=== PATIENT | female | born 1980 | race Caucasian/White ===

== ENCOUNTER 2016-12-30 20:17 | Inpatient (IN) | payer MEDICAID ==
[2016-12-30] MEDS ORDERED: HYDROmorphone 1 MG/ML Syringe IVPUSH ONE ×2 (21:20→22:02)
[2016-12-30] MEDS ORDERED: Ondansetron 4 MG/2 ML SDV IVPUSH ONE (21:20)
--- NOTE | 2016-12-30 21:27 | EDM.PDOC ---
ED HPI GENERAL MEDICAL PROBLEM - General Chief Complaint: Abdominal Pain Stated Complaint: ABDOMINAL PAIN Time Seen by Provider: 12/30/16 21:10 Source of Information: Reports: Patient, Old Records, RN History Limitations: Reports: No Limitations - History of Present Illness INITIAL COMMENTS - FREE TEXT/NARRATIVE: 36 yo female with a pHx of gastric bypass by Dr. Sagastume and recurrent bowel obstructions requiring surgery presents with onset of steady pain and mild nausea about 1700h today. Stool today harder than normal. No fever. No vomiting. Pain is constant at 7/10. Onset: Today Onset Date: 12/30/16 Onset Time: 17:00 Duration: Hour(s): Location: Reports: Abdomen Quality: Reports: Pressure Severity: Moderate Improves with: Reports: None Worsens with: Reports: Other (time) Context: Reports: Other (Hx of recurrent obstructions.) Associated Symptoms: Reports: Loss of Appetite, Nausea/Vomiting (no vomiting). 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 (see below) (none) Right Middle Abdomen Pain Score (Numeric/FACES): 9 - Related Data Allergies Allergy/AdvReac Type Severity Reaction Status Date / Time morphine Allergy Unknown Itching Verified 01/20/16 12:16 Penicillins Allergy Unknown Hives Verified 01/20/16 12:16 fentanyl Allergy Itching Verified 01/20/16 12:16 Home Meds: Home Meds DULoxetine [Cymbalta] 60 mg PO BEDTIME 08/24/14 [History] Docusate Sodium/Sennosides [Senna Plus] 2 tab PO DAILY #100 tablet 09/10/14 [Rx] Polyethylene Glycol 3350 [Miralax] 34 gm PO BID 12/19/14 [History] Cholecalciferol (Vitamin D3) [Vitamin D3] 1,000 unit PO DAILY 02/26/15 [History] Lubiprostone [Amitiza] 8 mcg PO BID 02/26/15 [History] Lurasidone [Latuda] 60 mg PO DAILY 02/26/15 [History] Mirtazapine 7.5 mg PO BEDTIME 02/26/15 [History] hydrOXYzine Pamoate [Hydroxyzine Pamoate] 50 mg PO Q4H PRN 02/26/15 [History] Cyclobenzaprine [Flexeril] 10 mg PO Q6H PRN #36 tablet 05/09/15 [Rx] Cyclobenzaprine [Flexeril] 10 mg PO TID PRN #36 tablet 05/09/15 [Rx] Cyanocobalamin (Vitamin B-12) [Vitamin B-12] 1,000 mcg SL DAILY 05/13/15 [ History] Multivitamin [Multi-Vitamin Daily] 1 tab PO BID 05/13/15 [History] Cholecalciferol (Vitamin D3) [Vitamin D3] 5,000 unit PO BID 12/30/16 [History] Dexmethylphenidate HCl [Focalin] 10 mg PO TID 12/30/16 [History] Milk Thistle 175 mg PO BID 12/30/16 [History] Past Medical History HEENT History: Reports: Impaired Vision Respiratory History: Reports: Pneumothorax Gastrointestinal History: Reports: Bowel Obstruction, Chronic Constipation, Chronic Diarrhea, Other (See Below) Other Gastrointestinal History: episosdes weekly since 12/25 Genitourinary History: Reports: UTI, Recurrent 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: Reports: Endometriosis, Musculoskeletal History: Reports: Fracture Psychiatric History: Reports: ADHD, Addiction, Anxiety, Bipolar, Depression, Panic Attack, Psych Hospitalization(s), PTSD, Suicide Attempt Hematologic History: Reports: Anemia, B12 Deficiency - Infectious Disease History Infectious Disease History: Reports: Chicken Pox - Past Surgical History HEENT Surgical History: Reports: Oral Surgery, Tonsillectomy GI Surgical History: Reports: Appendectomy, Bariatric Procedure, Cholecystectomy , Colonoscopy, EGD, Hernia, Abdominal, Hernia Repair/Other Female Surgical History: Reports: Section, Hysterectomy Musculoskeletal Surgical History: Reports: Other (See Below) Social & Family History - Family History Family Medical History: Unobtainable - Tobacco Use Smoking Status *Q: Current Every Day Smoker Years of Tobacco use: 20 Packs/Tins Daily: 1 Used Tobacco, but Quit: No Month Tobacco Last Used: april Second Hand Smoke Exposure: Yes - Caffeine Use Caffeine Use: Reports: Coffee - Alcohol Use Days Per Week of Alcohol Use: 0 - Recreational Drug Use Recreational Drug Use: No Drug Use in Last 12 Months: No Recreational Drug Type: Reports: Methamphetamine Recreational Drug Use Frequency: Not Used In Over 1 Year ED ROS GENERAL - Review of Systems Review Of Systems: See Below Constitutional: Reports: Decreased Appetite. Denies: Fever, Chills HEENT: Reports: No Symptoms Respiratory: Reports: No Symptoms Cardiovascular: Reports: No Symptoms Endocrine: Reports: No Symptoms GI/Abdominal: Reports: Abdominal Pain, Nausea. Denies: Constipation, Diarrhea, Decreased Appetite, Distension, Hematemesis, Hematochezia, Melena, Vomiting : Reports: No Symptoms Musculoskeletal: Reports: No Symptoms Skin: Reports: No Symptoms Neurological: Reports: No Symptoms ED EXAM, GI/ABD - Physical Exam Exam: See Below Exam Limited By: No Limitations General Appearance: Alert, WD/WN, No Apparent Distress Eyes: Bilateral: Normal Appearance, EOMI Ears: Normal External Exam, Normal Canal, Hearing Grossly Normal Nose: Normal Inspection, Normal Mucosa, No Blood Throat/Mouth: Normal Inspection, Normal Lips, Normal Teeth, Normal Gums, Normal Oropharynx, Normal Voice, No Airway Compromise Head: Atraumatic, Normocephalic Neck: Normal Inspection Respiratory/Chest: No Respiratory Distress, Lungs Clear, Normal Breath Sounds, No Accessory Muscle Use Cardiovascular: Regular Rate, Rhythm, No Edema GI/Abdominal Exam: Soft, No Distention, Tender (to the R of the umbilicus, vertical surgical scar(old) present), Abnormal Bowel Sounds (slightly decreased. ) Back Exam: Normal Inspection, Full Range of Motion. No: CVA Tenderness (L), Muscle Spasm Extremities: Normal Inspection, Normal Range of Motion, Non-Tender Neurological: Alert, Oriented, CN II-XII Intact, Normal Cognition, No Motor/ Sensory Deficits Psychiatric: Normal Affect, Normal Mood Skin Exam: Warm, Dry, Intact, Normal Color, No Rash Lymphatic: No Adenopathy Course - Vital Signs Text/Narrative:: Discussed with Dr. Sagastume @ [id number] Last Recorded V/S: Last Vital Signs Temp 36.2 C 12/30/16 20:59 Pulse 85 12/30/16 20:59 Resp 18 12/30/16 20:59 BP 128/72 12/30/16 22:22 Pulse Ox 98 12/30/16 20:59 - Orders/Labs/Meds Orders: Active Orders 24 hr Category Date Time Status Abdomen Pelvis w Cont [CT] Stat Exams 12/30/16 21:19 Taken UA W/MICROSCOPIC [URIN] Stat Lab 12/30/16 21:19 Uncollected Iopamidol [Isovue-300 (61%)] Med 12/30/16 21:45 Active 112 ml IV . DIRECTED Lactated Ringers [Ringers, Lactated] 1,000 ml Med 12/30/16 21:30 Active IV ASDIRECTED Sodium Chloride 0.9% [Saline Flush] Med 12/30/16 21:33 Active 10 ml FLUSH ONETIME PRN Medication Orders Lactated Ringer's (Ringers, Lactated) 1,000 mls @ 150 mls/hr IV ASDIRECTED EDELMIRA Last Admin: 12/30/16 21:32 Dose: 150 mls/hr Iopamidol (Isovue-300 (61%)) 112 ml IV . DIRECTED EDELMIRA Last Admin: 12/30/16 22:10 Dose: 150 ml Sodium Chloride (Saline Flush) 10 ml FLUSH ONETIME PRN PRN Reason: PER RADIOLOGY PROTOCOL Last Admin: 12/30/16 22:10 Dose: 10 ml Admin: 12/30/16 21:36 Dose: 10 ml Labs: Laboratory Tests 12/30/16 12/30/16 Range/Units 21:31 21:31 WBC 11.4 H (4.5-11.0) K/uL RBC 4.32 (3.30-5.50) M/uL Hgb 10.3 L (12.0-15.0) g/dL Hct 31.9 L (36.0-48.0) % MCV 74 L (80-98) fL MCH 24 L (27-31) pg MCHC 32 (32-36) % Plt Count 294 (150-400) K/uL Sodium 139 L (140-148) mmol/L Potassium 3.8 (3.6-5.2) mmol/L Chloride 105 (100-108) mmol/L Carbon Dioxide 25 (21-32) mmol/L Anion Gap 12.8 (5.0-14.0) mmol/L BUN 16 D (7-18) mg/dL Creatinine 0.8 (0.6-1.0) mg/dL Est Cr Clr Drug Dosing 94.54 mL/min Estimated GFR (MDRD) > 60 (>60) Glucose 88 (74-106) mg/dL Calcium 8.3 L (8.5-10.1) mg/dL Lipase 288 (73-393) U/L Meds: Medications Generic Name Dose Route Start Last Admin Trade Name Freq PRN Reason Stop Dose Admin Lactated Ringer's 1,000 mls @ 150 mls/hr 12/30/16 21:30 12/30/16 21:32 Ringers, Lactated IV 150 mls/hr ASDIRECTED EDELMIRA Administration Iopamidol 112 ml 12/30/16 21:45 12/30/16 22:10 Isovue-300 (61%) IV 150 ml . DIRECTED EDELMIRA Administration Sodium Chloride 10 ml 12/30/16 21:33 12/30/16 22:10 Saline Flush FLUSH 10 ml ONETIME PRN Administration PER RADIOLOGY PROTOCOL Discontinued Medications Generic Name Dose Route Start Last Admin Trade Name Freq PRN Reason Stop Dose Admin Diphenhydramine HCl 50 mg 12/30/16 22:01 12/30/16 22:16 Benadryl IVPUSH 12/30/16 22:02 50 mg ONETIME ONE Administration Hydromorphone HCl 1 mg 12/30/16 21:20 12/30/16 21:32 Dilaudid IVPUSH 12/30/16 21:21 1 mg ONETIME ONE Administration Hydromorphone HCl 1 mg 12/30/16 22:02 12/30/16 22:17 Dilaudid IVPUSH 12/30/16 22:03 1 mg ONETIME ONE Administration Sodium Chloride 74 mls @ 3 mls/sec 12/30/16 21:33 12/30/16 22:10 Normal Saline IV 12/30/16 21:34 3 mls/sec ONETIME ONE Administration Ondansetron HCl 4 mg 12/30/16 21:20 12/30/16 21:35 Zofran IVPUSH 12/30/16 21:21 4 mg ONETIME ONE Administration - Radiology Interpretation Free Text/Narrative:: CT abd/pelvis-SBO or sever ileus, other incidental findings CT Results Date: 12/30/16 CT Results Time: 22:40 Departure - Departure Time of Disposition: 22:50 Disposition: Admitted As Inpatient 66 Condition: Fair Clinical Impression: Small bowel obstruction - Discharge Information Referrals: Hill Sagastume MD [Primary Care Provider] - Forms: ED Department Discharge - My Orders Last 24 Hours: My Active Orders 12/30/16 21:19 Abdomen Pelvis w Cont [CT] Stat UA W/MICROSCOPIC [URIN] Stat 12/30/16 21:30 Lactated Ringers [Ringers, Lactated] 1,000 ml IV ASDIRECTED 12/30/16 21:33 Sodium Chloride 0.9% [Saline Flush] 10 ml FLUSH ONETIME PRN 12/30/16 21:45 Iopamidol [Isovue-300 (61%)] 112 ml IV . DIRECTED - Assessment/Plan Last 24 Hours: My Active Orders 12/30/16 21:19 Abdomen Pelvis w Cont [CT] Stat UA W/MICROSCOPIC [URIN] Stat 12/30/16 21:30 Lactated Ringers [Ringers, Lactated] 1,000 ml IV ASDIRECTED 12/30/16 21:33 Sodium Chloride 0.9% [Saline Flush] 10 ml FLUSH ONETIME PRN 12/30/16 21:45 Iopamidol [Isovue-300 (61%)] 112 ml IV . DIRECTED
[2016-12-30] MEDS ORDERED: Lactated Ringers 1,000 ML IV SCH (21:30)
[2016-12-30] MEDS: Sodium Chloride 0.9% 10 ML Syringe FLUSH PRN ×2 (21:36→22:10)
[2016-12-30] MEDS ORDERED: Iopamidol 612 MG/ML 150 ML Bottle IV SCH (21:45)
[2016-12-30] MEDS ORDERED: diphenhydrAMINE 50 MG/ML SDV IVPUSH ONE (22:01)
[2016-12-30] MEDS ORDERED: Pantoprazole 40 MG Vial IVPUSH ONE (22:54)
[2016-12-30] MEDS ORDERED: Meperidine 300 MG/30 ML PCA Vial IV PRN (23:17)
[2016-12-30] MEDS ORDERED: Ondansetron 4 MG/2 ML SDV IVPUSH PRN (23:30)
[2016-12-30] MEDS: Dextrose 5%-Lactated Ringers 1,000 ML IV SCH (23:55)
[2016-12-31] MEDS: Nicotine 21 MG/24 Hr Patch TRDERM SCH ×2 (00:44→09:27)
[2016-12-31] MEDS: diphenhydrAMINE 50 MG/ML SDV IVPUSH PRN ×3 (00:45→14:55)
[2016-12-31] MEDS: Mirtazapine 15 MG Tab PO SCH ×2 (00:46→22:01)
[2016-12-31] MEDS: Dextrose 5%-Lactated Ringers 1,000 ML IV SCH ×4 (05:25→20:25)
[2016-12-31] MEDS ORDERED: Bisacodyl 10 MG Supp RECTAL PRN (06:38)
[2016-12-31] MEDS ORDERED: Naloxone 0.4 MG/ML SDV IV PRN (08:17)
[2016-12-31] MEDS ORDERED: Acetaminophen 1,000 MG in Premix Bag 1 BAG IV ONE (08:45)
[2016-12-31] MEDS ORDERED: Bisacodyl 10 MG Supp RECTAL SCH (09:00)
--- NOTE | 2016-12-31 09:28 | CR ---
Abdomen 2V AP Upright Decub HISTORY: SBO FINDINGS: There is mild gaseous distention of a couple of small bowel loops left midabdomen. There is also mild gaseous distention of the ascending and transverse colon. No free air is identified. No so ft tissue mass or organomegaly can be seen. Multiple surgical clips and staple lines are noted. Lung bases are clear. Thoracolumbar spine demonstrates mild scoliosis convex to the right. There is contra st in the urinary bladder from CT study of one day prior. IMPRESSION: Bowel gas pattern could suggest mild ileus, gastroenteritis, or partial small bowel obstr uction. I see no signs of perforation. Extensive old postoperative changes are noted. Mild thoracolum bar scoliosis convex to the right.
--- NOTE | 2016-12-31 13:52 | PCM.SURGPN ---
- General Info Date of Service: 12/31/16 POD#: 0 Admission Diagnosis/Problem: Abdominal pain (Partial SBO) Functional Status: Reports: Ambulating, Urinating, Other (Complains of a headache today ) - Review of Systems General: Reports: No Symptoms HEENT: Reports: Headaches Pulmonary: Reports: No Symptoms Cardiovascular: Reports: No Symptoms Gastrointestinal: Reports: Abdominal Pain, Constipation, Decreased Appetite, Nausea Genitourinary: Reports: No Symptoms Musculoskeletal: Reports: No Symptoms Skin: Reports: No Symptoms Neurological: Reports: No Symptoms Psychiatric: Reports: No Symptoms Systems Review Comment:: Jamee reports that she continues to have right upper and lower quadrant pain. She also complains of a headache which has not been controlled with IV Tylenol. - Patient Data Vitals - Most Recent: Last Vital Signs Temp 35.9 C 12/31/16 08:00 Pulse 90 12/31/16 08:00 Resp 16 12/31/16 08:00 BP 92/65 12/31/16 08:00 Pulse Ox 94 L 12/31/16 08:00 Weight - Most Recent: 77.111 kg I&O - Last 24 Hours: Intake & Output 12/30/16 12/31/16 12/31/16 22:59 06:59 14:59 Intake Total 1004 Output Total 500 Balance 504 Med Orders - Current: Current Medications Bisacodyl (Dulcolax) 10 mg RECTAL DAILY PRN PRN Reason: Constipation Diphenhydramine HCl (Benadryl) 25 - 50 mg IVPUSH Q4H PRN PRN Reason: Itching Last Admin: 12/31/16 04:39 Dose: 25 mg Dextrose/Lactated Ringer's (Dextrose 5%-Lactated Ringers) 1,000 mls @ 125 mls/ hr IV ASDIRECTED EDELMIRA Last Admin: 12/31/16 12:39 Dose: 125 mls/hr Meperidine HCl (Demerol Adjunct Physics Instructor 300 Mg In 30 Ml) 300 mg IV ASDIRECTED PRN; Protocol PRN Reason: Pain Last Admin: 12/30/16 23:48 Dose: 300 mg Mirtazapine (Remeron) 7.5 mg PO BEDTIME EDELMIRA Last Admin: 12/31/16 00:46 Dose: 7.5 mg Naloxone HCl (Narcan) 0.1 mg IV ASDIRECTED PRN PRN Reason: DECREASED RESPIRATORY RATE Nicotine (Habitrol) 21 mg TRDERM DAILY [facility] Last Admin: 12/31/16 09:27 Dose: 21 mg Ondansetron HCl (Zofran) 4 mg IVPUSH Q4H PRN PRN Reason: Nausea/Vomiting Pantoprazole Sodium (Protonix Iv) 40 mg IVPUSH Q24H [facility] Sodium Chloride (Saline Flush) 10 ml FLUSH ONETIME PRN PRN Reason: PER RADIOLOGY PROTOCOL Last Admin: 12/30/16 22:10 Dose: 10 ml Discontinued Medications Bisacodyl (Dulcolax) 10 mg RECTAL DAILY EDELMIRA Stop: 12/31/16 09:01 Last Admin: 12/31/16 08:26 Dose: 10 mg Diphenhydramine HCl (Benadryl) 50 mg IVPUSH ONETIME ONE Stop: 12/30/16 22:02 Last Admin: 12/30/16 22:16 Dose: 50 mg Hydromorphone HCl (Dilaudid) 1 mg IVPUSH ONETIME ONE Stop: 12/30/16 21:21 Last Admin: 12/30/16 21:32 Dose: 1 mg Hydromorphone HCl (Dilaudid) 1 mg IVPUSH ONETIME ONE Stop: 12/30/16 22:03 Last Admin: 12/30/16 22:17 Dose: 1 mg Lactated Ringer's (Ringers, Lactated) 1,000 mls @ 150 mls/hr IV ASDIRECTED [facility] Last Admin: 12/30/16 21:32 Dose: 150 mls/hr Sodium Chloride (Normal Saline) 74 mls @ 3 mls/sec IV ONETIME ONE Stop: 12/30/16 21:34 Last Admin: 12/30/16 22:10 Dose: 3 mls/sec Dextrose/Lactated Ringer's (Dextrose 5%-Lactated Ringers) 1,000 mls @ 175 mls/ hr IV ASDIRECTED [facility] Last Admin: 12/31/16 05:25 Dose: 175 mls/hr Acetaminophen 1,000 mg/ Premix 100 mls @ 400 mls/hr IV NOW ONE Stop: 12/31/16 08:59 Last Admin: 12/31/16 08:25 Dose: 400 mls/hr Iopamidol (Isovue-300 (61%)) 112 ml IV . DIRECTED [facility] Last Admin: 12/30/16 22:10 Dose: 150 ml Ondansetron HCl (Zofran) 4 mg IVPUSH ONETIME ONE Stop: 12/30/16 21:21 Last Admin: 12/30/16 21:35 Dose: 4 mg Pantoprazole Sodium (Protonix Iv) 40 mg IVPUSH ONETIME ONE Stop: 12/30/16 22:55 Last Admin: 12/30/16 23:51 Dose: 40 mg - Exam Wound/Incisions: Other (NA) Quality Assessment: DVT Prophylaxis General: Alert, Oriented, No Acute Distress HEENT: Pupils Equal Neck: Supple Lungs: Normal Respiratory Effort Cardiovascular: Regular Rhythm GI/Abdominal Exam: Tender (generalized ) Extremities: Normal Inspection Skin: Warm, Dry, Intact Neurological: No New Focal Deficit Psy/Mental Status: Alert, Normal Affect - Problem List & Annotations (1) Small bowel obstruction SNOMED Code(s): 237534420 Code(s): K56.69 - OTHER INTESTINAL OBSTRUCTION Status: Acute Current Visit: Yes - Problem List Review Problem List Initiated/Reviewed/Updated: Yes - My Orders Last 24 Hours: Active Orders 24 hr Category Date Time Status Ambulate [RC] Q4HPRN Care 12/31/16 06:36 Active Intake and Output [RC] ASDIRECTED Care 12/30/16 23:30 Active Overnight Pulse Oximetry [RC] Click to Edit Care 12/31/16 01:18 Active Up ad Nalini [RC] ASDIRECTED Care 12/30/16 23:28 Active Up to Chair [RC] Q4HPRN Care 12/31/16 06:36 Active Vital Signs [RC] Q4H Care 12/30/16 23:29 Active Nothing Per Oral Diet [DIET] Diet 12/31/16 Breakfast Active Abdomen 2V AP Upright Decub [CR] Routine Exams 01/01/17 04:00 Ordered CBC W/O DIFF,HEMOGRAM [HEME] Timed Lab 01/01/17 04:00 Ordered COMPREHENSIVE METABOLIC PN,CMP [CHEM] Timed Lab 01/01/17 04:00 Ordered FERRITIN [CHEM] Routine Lab 01/01/17 04:00 Ordered FOLATE [FOLIC ACID] [CHEM] Routine Lab 01/01/17 04:00 Ordered MAGNESIUM [CHEM] Timed Lab 01/01/17 04:00 Ordered PHOSPHORUS [CHEM] Timed Lab 01/01/17 04:00 Ordered VITAMIN B12 [CHEM] Routine Lab 01/01/17 04:00 Ordered Bisacodyl [Dulcolax] Med 12/31/16 06:38 Active 10 mg RECTAL DAILY PRN Dextrose 5%-Lactated Ringers 1,000 ml Med 12/31/16 06:45 Active IV ASDIRECTED Meperidine [Demerol AD TAKER 300 MG in 30 ML] Med 12/30/16 23:17 Active 300 mg IV ASDIRECTED PRN Mirtazapine [Remeron] Med 12/31/16 00:30 Active 7.5 mg PO BEDTIME Naloxone [Narcan] Med 12/31/16 08:17 Active 0.1 mg IV ASDIRECTED PRN Nicotine [Habitrol] Med 12/31/16 00:30 Active 21 mg TRDERM DAILY Ondansetron [Zofran] Med 12/30/16 23:30 Active 4 mg IVPUSH Q4H PRN Pantoprazole [ProTONIX IV] Med 12/31/16 22:00 Active 40 mg IVPUSH Q24H diphenhydrAMINE [Benadryl] Med 12/31/16 00:20 Active 25 - 50 mg IVPUSH Q4H PRN Pulse Oximetry Continuous Monitoring [OM.PC] Routine Oth 12/31/16 01:18 Ordered Sequential Compression Device [OM.PC] Routine Oth 12/31/16 06:27 Ordered Code Status [Resuscitation Status] Routine Resus Stat 12/30/16 23:27 Ordered Medication Orders Bisacodyl (Dulcolax) 10 mg RECTAL DAILY PRN PRN Reason: Constipation Diphenhydramine HCl (Benadryl) 25 - 50 mg IVPUSH Q4H PRN PRN Reason: Itching Last Admin: 12/31/16 04:39 Dose: 25 mg Admin: 12/31/16 00:45 Dose: 25 mg Dextrose/Lactated Ringer's (Dextrose 5%-Lactated Ringers) 1,000 mls @ 125 mls/ hr IV ASDIRECTED EDELMIRA Last Admin: 12/31/16 12:39 Dose: 125 mls/hr Infusion: 12/31/16 12:39 Dose: 125 mls/hr Admin: 12/31/16 07:20 Dose: 125 mls/hr Meperidine HCl (Demerol Adjunct Physics Instructor 300 Mg In 30 Ml) 300 mg IV ASDIRECTED PRN; Protocol PRN Reason: Pain Last Admin: 12/30/16 23:48 Dose: 300 mg Mirtazapine (Remeron) 7.5 mg PO BEDTIME EDELMIRA Last Admin: 12/31/16 00:46 Dose: 7.5 mg Naloxone HCl (Narcan) 0.1 mg IV ASDIRECTED PRN PRN Reason: DECREASED RESPIRATORY RATE Nicotine (Habitrol) 21 mg TRDERM DAILY [facility] Last Admin: 12/31/16 09:27 Dose: 21 mg Admin: 12/31/16 00:44 Dose: 21 mg Ondansetron HCl (Zofran) 4 mg IVPUSH Q4H PRN PRN Reason: Nausea/Vomiting Pantoprazole Sodium (Protonix Iv) 40 mg IVPUSH Q24H [facility] Sodium Chloride (Saline Flush) 10 ml FLUSH ONETIME PRN PRN Reason: PER RADIOLOGY PROTOCOL Last Admin: 12/30/16 22:10 Dose: 10 ml Admin: 12/30/16 21:36 Dose: 10 ml - Assessment Assessment (Free Text/Narrative):: Partial SBO s/p gastric bypass surgery. - Plan Plan (Free Text/Narrative):: 1. Abdominal x-rays, flat and upright this am. Repeat tomorrow am for follow up SBO. 2. CBC, CMP, Mg, Phos, Ferritin, B12, Folate levels in am. 3. Decrease IV to 125 mL/hr. 4. SCDs on while in bed. 5. Up in chair and ambulate QID and prn. 6. Dulcolax suppository once this am and repeat prn.
[2016-12-31] MEDS: Acetaminophen 325 MG Tab PO PRN ×2 (14:28→20:24)
[2016-12-31] MEDS ORDERED: Pantoprazole 40 MG Vial IVPUSH SCH (22:00)
[2017-01-01] MEDS ORDERED: Iron Sucrose Complex 500 MG in Sodium Chloride 0.9% 250 ML IV ONE (08:30)
[2017-01-01] MEDS ORDERED: Cyanocobalamin (Vitamin B12) 1,000 MCG/ML SDV IM ONE (09:00)
[2017-01-01] MEDS: Nicotine 21 MG/24 Hr Patch TRDERM SCH (09:16)
--- NOTE | 2017-01-01 09:23 | CR ---
Abdomen 2V AP Upright Decub HISTORY: follow up SBO FINDINGS: There is gaseous distention of bowel loops in the upper abdomen. Loops appear to represent primarily colon. One slightly prominent small bowel loop left midabdomen is unchanged. Little small b owel gas is seen. Surgical clips and staple lines are redemonstrated throughout the abdomen. No mass organomegaly is identified. There is no free air. IMPRESSION: No significant change compared with yesterday's exam.
--- NOTE | 2017-01-01 10:47 | DISCH ---
ADMISSION DIAGNOSES: Abdominal pain, ADD, recurrent major depression, history of Silvestre-en-Y gastric bypass surgery, unspecified surgical malabsorption, B12 deficiency, vitamin D deficiency, hypothyroidism, megacolon, gastric motility disorder, and circadian dysregulation. DISCHARGE DIAGNOSES: Partial small bowel obstruction, resolved; megacolon; and gastric motility disorder. HISTORY: Jamee Vance was admitted on 12/30/2016 for onset of abdominal pain and nausea. She had a complete abdominal workup and was hospitalized and treated conservatively. She was n.p.o., given a Dilaudid CONSERVATION AGENT and Zofran for nausea and vomiting. Her abdominal x-rays did reveal improvement. She continued on a clear liquid diet. Her activity was good. She did have a suppository on 12/31/2016, which resulted in a large bowel movement. On 01/01/2017, her activity is good. Pain is 0. Vital signs are stable, and she is ready to be discharged to home. Ferritin on admission was 12, and she will be receiving Venofer 500 mg IV this morning before she goes home. REVIEW OF SYSTEMS: HEENT: Negative. NECK: Negative. HEART: No chest pain, shortness of breath, or fast or irregular heart beat. LUNGS: No cough. ABDOMEN: As above. : Negative. EXTREMITIES: Has chronic joint pain and stiffness. PSYCHIATRIC: Depression is well controlled with medication. SKIN: Without rash. NEURO: No headaches, dizziness, or loss of coordination. Remainder of review of systems negative for any pertinent positives and negatives. OBJECTIVE: GENERAL: Jamee Vance is a pleasant 36-year-old female. VITAL SIGNS: Height is 5 feet 6.9 inches, weight is 170 pounds. TPR is 97.4, 66, 18. Blood pressure 101/55. HEENT: Negative. NECK: Supple. HEART: Regular rate and rhythm. LUNGS: Clear. ABDOMEN: Soft, very minimally tender in all 4 quadrants. EXTREMITIES: Negative. NEURO: Intact. SKIN: Without rash. PSYCHIATRIC: Mood and affect appropriate. DISPOSITION: Discharged to home. CONDITION: Stable and improving. FOLLOWUP APPOINTMENT: With Britney Hand PA-C, on 03/10/2017 at 1:00 p.m. She will need to have her labs redrawn, along with an iron panel. HOME MEDICATIONS: Remain the same: Vitamin D3 5,000 international units twice daily; vitamin B12 1,000 mcg sublingual daily; Flexeril 10 mg every 6 hours p.r.n. muscle spasms; Cymbalta 60 mg at bedtime; Focalin 10 mg 3 times a day; Senna Plus 2 tablets oral daily; Amitiza 24 mcg oral twice daily, #60 with 11 refills; Latuda 60 mg oral daily; Milk Thistle 175 mg oral twice daily; mirtazapine 7.5 mg oral at bedtime; multivitamin 1 tablet twice a day; MiraLax 34 g oral twice a day; and hydroxyzine pamoate 50 mg oral every 4 hours p.r.n. anxiety. DISCHARGE INSTRUCTIONS: Diet after discharge: Usual diet as tolerated. Drink 8 to 10 glasses per day. Activity: As tolerated. Driving after discharge: May drive. Shower/bathing: May shower. Notify provider if any increased pain, nausea, or vomiting.
--- NOTE | 2017-01-01 10:51 | US ---
Pelvis Non OB Comp HISTORY: oval fluid density lesion Left ovary FINDINGS: The uterus and right ovary are surgically absent. There is a large cystic lesion on the lef t ovary measuring 7.7 x 6.6 x 6.2 cm in size. I cannot identify normal ovarian tissue. The mass is an echoic with through transmission. No definite septations or soft tissue component can be seen. Anteri or wall calcifications are seen on CT study of 12/30/2016. There is no free fluid in the cul-de-sac. IMPRESSION: 1. Status post hysterectomy and right oophorectomy. 2. Large cystic mass left ovary as described above. While this could be a large simple cyst, I cannot exclude other etiology such as ovarian cystoadenoma or cystadenocarcinoma.
[2017-01-01 11:58] VITALS: BP 103/58
--- NOTE | 2017-01-04 09:12 | PN ---
DATE OF SERVICE: 01/01/2017 Jamee was admitted overnight with small-bowel obstruction picture. Her abdomen this morning is somewhat distended but not particularly tender. Review of the CT scan shows quite a bit in the way of large dilated small bowel loops. Transition point to my mind is somewhat unclear. We did obtain an abdominal x-ray. It does show some air in the rectum. Plan at this point will be to treat the patient conservatively for the time being. If we can avoid re-operating on this patient, that would be certainly beneficial. Otherwise maximize activity, work on pulmonary toilet, and recheck some labs tomorrow. Hill Sagastume MD /[id number]
== END 2017-01-01 14:24 | disposition home or self-care (01) | DRG 389 ==
LOC: JP.ED 20:17 → JP.ICU 22:57 → JP.2SS 12-31 18:50
PROVIDERS: ADMIT Surgery; ATTEND Surgery
DX: K56.69 Other intestinal obstruction (principal); K91.2 Postsurgical malabsorption, not elsewhere classified; K59.39 Other megacolon; F17.210 Nicotine dependence, cigarettes, uncomplicated; Z98.84 Bariatric surgery status; Z98.0 Intestinal bypass and anastomosis status; K31.89 Other diseases of stomach and duodenum; E03.9 Hypothyroidism, unspecified; F31.9 Bipolar disorder, unspecified; F90.9 Attention-deficit hyperactivity disorder, unspecified type; F41.9 Anxiety disorder, unspecified; G47.20 Circadian rhythm sleep disorder, unspecified type; Z91.5 Personal history of self-harm; E55.9 Vitamin D deficiency, unspecified; E53.8 Deficiency of other specified B group vitamins; Z87.440 Personal history of urinary (tract) infections; K59.09 Other constipation; H54.7 Unspecified visual loss; Z88.5 Allergy status to narcotic agent; Z88.0 Allergy status to penicillin; Z88.8 Allergy status to other drugs, medicaments and biological substances
CPT/HCPCS: 36415; 74022; 74022-26; 74177; 76856; 76856-26; 80048; 80053; 81001; 82306; 82607; 82652; 82728; 82746; 83690; 83735; 84100; 84425; 84443; 85027; 86304; 94762; 96361; 96374; 96375; 96376; 99285-25; A9270-GY; C9113; J0131; J1170; J1200; J1756; J2175; J2405; J3420; J7030; J7042; J7050; J7120

== ENCOUNTER 2019-06-12 12:27 | Inpatient (IN) | payer MEDICAID ==
[2019-06-12] MEDS ORDERED: Ondansetron 4 MG/2 ML SDV IVPUSH ONE (14:08)
--- NOTE | 2019-06-12 14:08 | EDM.PDOC ---
ED HPI GENERAL MEDICAL PROBLEM - General Chief Complaint: Abdominal Pain Stated Complaint: ABDOMINAL PAIN Time Seen by Provider: 06/12/19 13:50 Source of Information: Reports: Patient History Limitations: Reports: No Limitations - History of Present Illness INITIAL COMMENTS - FREE TEXT/NARRATIVE: pt arrived with pain in the lower abdoman. She has not been having bm. She Had a very small stool this am. She passed some gas last nite but not today. Onset: Other ( started 2 -3 days ago. ) Duration: Hour(s): Location: Reports: Abdomen Quality: Reports: Sharp, Stabbing Associated Symptoms: Reports: Other (pt is not stooling. ) Abdominal Pain Score (Numeric/FACES): 8 - Related Data Allergies Allergy/AdvReac Type Severity Reaction Status Date / Time morphine Allergy Unknown Itching Verified 06/12/19 13:24 Penicillins Allergy Unknown Hives Verified 06/12/19 13:24 fentanyl Allergy Itching Verified 06/12/19 13:24 hydromorphone [From Dilaudid] Allergy Itching Verified 06/12/19 13:24 Home Meds: Home Meds DULoxetine [Cymbalta] 120 mg PO BEDTIME 08/24/14 [History] Docusate Sodium/Sennosides [Senna Plus] 2 tab PO DAILY #100 tablet 09/10/14 [Rx] Polyethylene Glycol 3350 [Miralax] 34 gm PO BID PRN 12/19/14 [History] Cholecalciferol (Vitamin D3) [Vitamin D3] 1,600 unit PO DAILY 02/26/15 [History] Mirtazapine 15 mg PO BEDTIME 02/26/15 [History] Cyclobenzaprine [Flexeril] 10 mg PO TID PRN #36 tablet 05/09/15 [Rx] Milk Thistle 175 mg PO BID 12/30/16 [History] Lubiprostone [Amitiza] 24 mcg PO BID #60 cap 01/01/17 [Rx] Ascorbic Acid [Vitamin C] 250 mg PO DAILY 06/12/19 [History] Cyanocobalamin (Vitamin B-12) [Cyanocobalamin Injection] 1,000 mcg IM Q30D 06/11 [History] Dextroamphetamine/Amphetamine [Adderall 20 mg Tablet] 20 mg PO BEDTIME 06/12/19 [History] Dextroamphetamine/Amphetamine [Adderall] 30 mg PO BID 06/12/19 [History] Minocycline [Minocin] 50 mg PO BID 06/12/19 [History] Pantoprazole [ProTONIX] 40 mg PO DAILY 06/12/19 [History] cloNIDine HCL [Clonidine HCl] 0.1 mg PO BID 06/12/19 [History] Past Medical History HEENT History: Reports: Impaired Vision Respiratory History: Reports: Pneumothorax Gastrointestinal History: Reports: Bowel Obstruction, Chronic Constipation, Chronic Diarrhea, Other (See Below) Other Gastrointestinal History: episosdes weekly since 12/25. 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: Endometriosis, Musculoskeletal History: Reports: Fracture Psychiatric History: Reports: ADHD, Addiction, Anxiety, Bipolar, Depression, Panic Attack, Psych Hospitalization(s), PTSD, Suicide Attempt Hematologic History: Reports: Anemia, B12 Deficiency - Infectious Disease History Infectious Disease History: Reports: Chicken Pox - Past Surgical History HEENT Surgical History: Reports: Oral Surgery, Tonsillectomy GI Surgical History: Reports: Appendectomy, Bariatric Procedure, Cholecystectomy , Colonoscopy, EGD, Hernia, Abdominal, Hernia Repair/Other Female Surgical History: Reports: Section, Hysterectomy Musculoskeletal Surgical History: Reports: Other (See Below) Social & Family History - Family History Family Medical History: Unobtainable - Tobacco Use Smoking Status *Q: Current Every Day Smoker Years of Tobacco use: 20 Packs/Tins Daily: 1 - Caffeine Use Caffeine Use: Reports: Coffee - Alcohol Use Days Per Week of Alcohol Use: 2 Number of Drinks Per Day: 2 Total Drinks Per Week: 4 - Recreational Drug Use Recreational Drug Use: Yes Drug Use in Last 12 Months: Yes Recreational Drug Type: Reports: Marijuana/Hashish ED ROS GENERAL - Review of Systems Review Of Systems: See Below Constitutional: Reports: Decreased Appetite HEENT: Reports: No Symptoms Respiratory: Reports: No Symptoms Cardiovascular: Reports: No Symptoms Endocrine: Reports: No Symptoms GI/Abdominal: Reports: Abdominal Pain : Reports: No Symptoms Musculoskeletal: Reports: No Symptoms Skin: Reports: No Symptoms Neurological: Reports: No Symptoms Psychiatric: Reports: Anxiety ED EXAM, GI/ABD - Physical Exam Exam: See Below Text/Narrative:: pt arrived with pain in the rt side of her abdoman and accross her lower abdoman. She has not been stooling normal. She has been nauseated but has not vomited. She has a definite motility problem with her bowel. Exam Limited By: No Limitations General Appearance: Alert, Moderate Distress Ears: Normal TMs Nose: Normal Inspection Throat/Mouth: Normal Inspection Head: Atraumatic Neck: Normal Inspection Respiratory/Chest: No Respiratory Distress Cardiovascular: Regular Rate, Rhythm GI/Abdominal Exam: No Distention, Other (pt is tender in the rt mid abdoman and pain in the lower abdoman. ) (Female) Exam: Deferred Rectal (Female) Exam: Deferred Back Exam: Normal Inspection Extremities: Normal Inspection Neurological: Alert, Oriented, Normal Cognition Course - Vital Signs Last Recorded V/S: Last Vital Signs Temp 36.2 C 06/12/19 13:20 Pulse 72 06/12/19 17:08 Resp 20 06/12/19 14:48 BP 118/52 L 06/12/19 17:08 Pulse Ox 100 06/12/19 14:48 - Orders/Labs/Meds Orders: Active Orders 24 hr Category Date Time Status UA W/MICROSCOPIC [URIN] Urgent Lab 06/12/19 14:08 Ordered Iopamidol [Isovue-300 (61%)] Med 06/12/19 15:18 Active 100 ml IV . DIRECTED PRN Sodium Chloride 0.9% [Normal Saline] 1,000 ml Med 06/12/19 14:15 Active IV ASDIRECTED Sodium Chloride 0.9% [Normal Saline] 1,000 ml Med 06/12/19 17:15 Ordered IV ASDIRECTED Sodium Chloride 0.9% [Normal Saline] 76 ml Med 06/12/19 15:30 Active IV ASDIRECTED Medication Orders Sodium Chloride (Normal Saline) 1,000 mls @ 999 mls/hr IV ASDIRECTED EDELMIRA Last Admin: 06/12/19 14:35 Dose: 999 mls/hr Sodium Chloride (Normal Saline) 76 mls @ 3.2 mls/sec IV ASDIRECTED EDELMIRA Stop: 06/13/19 15:31 Last Admin: 06/12/19 15:30 Dose: 3.2 mls/sec Sodium Chloride (Normal Saline) 1,000 mls @ 999 mls/hr IV ASDIRECTED EDELMIRA Iopamidol (Isovue-300 (61%)) 100 ml IV . DIRECTED PRN PRN Reason: RADIOLOGY EXAM Stop: 06/13/19 15:19 Last Admin: 06/12/19 15:30 Dose: 100 ml Labs: Laboratory Tests 06/12/19 06/12/19 06/12/19 Range/Units 14:21 14:21 15:36 WBC 10.0 (4.5-11.0) K/uL RBC 4.27 (3.30-5.50) M/uL Hgb 12.3 D (12.0-15.0) g/dL Hct 37.2 (36.0-48.0) % MCV 87 (80-98) fL MCH 29 (27-31) pg MCHC 33 (32-36) % Plt Count 315 (150-400) K/uL Neut % (Auto) 66 (36-66) % Lymph % (Auto) 26 (24-44) % [place] % (Auto) 6 (2-6) % Eos % (Auto) 1 L (2-4) % Baso % (Auto) 0 (0-1) % Sodium 138 L (140-148) mmol/L Potassium 4.5 (3.6-5.2) mmol/L Chloride 104 (100-108) mmol/L Carbon Dioxide 24 (21-32) mmol/L Anion Gap 14.5 H (5.0-14.0) mmol/L BUN 9 (7-18) mg/dL Creatinine 0.7 (0.6-1.0) mg/dL Est Cr Clr Drug Dosing 102.01 mL/min Estimated GFR (MDRD) > 60 (>60) Glucose 87 (74-106) mg/dL Lactic Acid 1.4 (0.4-2.0) mmol/L Calcium 8.7 (8.5-10.1) mg/dL Total Bilirubin 0.4 D (0.2-1.0) mg/dL AST 19 (15-37) U/L ALT 25 (12-78) U/L Alkaline Phosphatase 63 (46-116) U/L Total Protein 6.9 (6.4-8.2) g/dL Albumin 3.9 (3.4-5.0) g/dL Globulin 3.0 (2.3-3.5) g/dL Albumin/Globulin Ratio 1.3 (1.2-2.2) Meds: Medications Generic Name Dose Route Start Last Admin Trade Name Freq PRN Reason Stop Dose Admin Sodium Chloride 1,000 mls @ 999 mls/hr 06/12/19 14:15 06/12/19 14:35 Normal Saline IV 999 mls/hr ASDIRECTED EDELMIRA Administration Sodium Chloride 76 mls @ 3.2 mls/sec 06/12/19 15:30 06/12/19 15:30 Normal Saline IV 06/13/19 15:31 3.2 mls/sec ASDIRECTED EDELMIRA Administration Sodium Chloride 1,000 mls @ 999 mls/hr 06/12/19 17:15 Normal Saline IV ASDIRECTED EDELMIRA Iopamidol 100 ml 06/12/19 15:18 06/12/19 15:30 Isovue-300 (61%) IV 06/13/19 15:19 100 ml . DIRECTED PRN Administration RADIOLOGY EXAM Discontinued Medications Generic Name Dose Route Start Last Admin Trade Name Tavia PRN Reason Stop Dose Admin Hydromorphone HCl 0.5 mg 06/12/19 14:09 06/12/19 14:44 Dilaudid IVPUSH 06/12/19 14:10 0.5 mg ONETIME ONE Administration Hydromorphone HCl 0.5 mg 06/12/19 15:41 06/12/19 15:56 Dilaudid IVPUSH 06/12/19 15:42 0.5 mg ONETIME ONE Administration Ondansetron HCl 4 mg 06/12/19 14:08 06/12/19 14:43 Zofran IVPUSH 06/12/19 14:09 4 mg ONETIME ONE Administration Sodium Chloride 10 ml 06/12/19 15:30 06/12/19 15:30 Saline Flush FLUSH 06/12/19 15:31 10 ml ONETIME EDELMIRA Administration - Re-Assessments/Exams Free Text/Narrative Re-Assessment/Exam: 06/12/19 17:15 pt had normal labs. A urine has not been obtained. Her cat scan of the abdoman does not show a definite obstruction. She has some fluid and gas filled small bowel segments. This is always difficult to sort out her problems. Dr Sagastume felt it best to admit her with the amount of pain she is having. Departure - Departure Time of Disposition: 17:18 Disposition: Admitted As Inpatient 66 Condition: Fair Clinical Impression: Status post gastric bypass for obesity, Dehydration, Abdominal pain, At risk for abnormal gastrointestinal motility - Discharge Information Referrals: Vesta Arroyo MD [Primary Care Provider] - Forms: ED Department Discharge Care Plan Goals: admit to Dr Shabazz. Sepsis Event Note - Evaluation Sepsis Screening Result: No Definite Risk - Focused Exam Vital Signs: Vital Signs Temp Pulse Resp BP Pulse Ox 06/12/19 17:08 72 118/52 L 06/12/19 15:50 72 113/50 L 06/12/19 14:48 77 20 116/62 100 06/12/19 13:20 36.2 C 81 14 110/58 L 100 Date Exam was Performed: 06/12/19 Time Exam was Performed: 17:13 - My Orders Last 24 Hours: My Active Orders 06/12/19 14:08 UA W/MICROSCOPIC [URIN] Urgent 06/12/19 14:15 Sodium Chloride 0.9% [Normal Saline] 1,000 ml IV ASDIRECTED 06/12/19 15:18 Iopamidol [Isovue-300 (61%)] 100 ml IV . DIRECTED PRN 06/12/19 15:30 Sodium Chloride 0.9% [Normal Saline] 76 ml IV ASDIRECTED 06/12/19 17:15 Sodium Chloride 0.9% [Normal Saline] 1,000 ml IV ASDIRECTED - Assessment/Plan Last 24 Hours: My Active Orders 06/12/19 14:08 UA W/MICROSCOPIC [URIN] Urgent 06/12/19 14:15 Sodium Chloride 0.9% [Normal Saline] 1,000 ml IV ASDIRECTED 06/12/19 15:18 Iopamidol [Isovue-300 (61%)] 100 ml IV . DIRECTED PRN 06/12/19 15:30 Sodium Chloride 0.9% [Normal Saline] 76 ml IV ASDIRECTED 06/12/19 17:15 Sodium Chloride 0.9% [Normal Saline] 1,000 ml IV ASDIRECTED
[2019-06-12] MEDS ORDERED: HYDROmorphone 0.5 MG/0.5 ML Syringe IVPUSH ONE ×3 (14:09→17:35)
[2019-06-12] MEDS ORDERED: Sodium Chloride 0.9% 1,000 ML IV SCH ×2 (14:15→17:15)
[2019-06-12] MEDS ORDERED: Iopamidol 612 MG/ML 100 ML Bottle IV PRN (15:18)
[2019-06-12] MEDS ORDERED: Sodium Chloride 0.9% 10 ML Syringe FLUSH SCH (15:30)
--- NOTE | 2019-06-12 16:31 | CRLCT ---
INDICATION: Lower abdominal pain TECHNIQUE: CT abdomen and pelvis acquired with IV contrast. 100 mL of Isovue-300 administered. COMPARISON: 12/30/2016 FINDINGS: Lower chest: Unremarkable. Liver: A 1.8 x 1.2 cm ovoid low-density area in the inferior aspect of the medial segment of the left hepatic lobe on image 40, increased in prominence, which could represent focal fatty infiltration. A subcentimeter low-density lesion again seen along the medial aspect of the right hepatic lobe on image 51, too small to characterize. Spleen: Unremarkable. Pancreas: Unremarkable. Gallbladder and bile ducts: Cholecystectomy. Persistent mild biliary dilatation. Adrenal glands: Unremarkable. Kidneys: A ptotic right kidney. No hydronephrosis. GI tract: Post gastric bypass and partial colectomy changes again seen. Several gas and fluid filled small bowel segments in the left abdomen and pelvis are nonspecific. Mild rectal wall prominence is at least partially related to underdistention. Vascular structures: Unremarkable. Lymph nodes: No abnormally enlarged lymph nodes. Miscellaneous: Small pelvic free fluid. No free air. Pelvic Organs: Hysterectomy. A peripherally enhancing left adnexal low-density structure compatible with an involuting physiologic follicle. An adjacent 2.6 x 2.3 cm left adnexal low-density area containing several irregular calcifications. No discrete bladder abnormality seen. Bones: A mild scoliotic deformity. IMPRESSION: Some fluid and gas-filled small bowel segments, nonspecific. Correlate for enteritis. Mild rectal wall prominence is at least partially related to underdistention, however correlate clinically to exclude mild proctitis. Small pelvic free fluid which may be physiologic. A 2.6 cm left adnexal low-density structure containing several calcifications. Follow-up with sonographic evaluation. A 1.8 cm hepatic low-density focus could represent focal fatty infiltration. Follow-up with nonemergent sonographic evaluation. Dictated by Brad Baca MD @ 06/12/2019 4:29:44 PM Please note that all CT scans at this facility use dose modulation, iterative reconstruction, and/or weight-based dosing when appropriate to reduce radiation dose to as low as reasonably achievable. Dictated by: Brad Baca MD @ 06/12/2019 16:30:24 (Electronically Signed)
--- NOTE | 2019-06-12 17:25 | PCM.HP.2 ---
H&P History of Present Illness - General Date of Service: 06/12/19 Admit Problem/Dx: Admission Diagnosis/Problem Admission Diagnosis/Problem Enteritis Source of Information: Patient, Provider, RN Notes Reviewed History Limitations: Reports: No Limitations - History of Present Illness Initial Comments - Free Text/Narative: Ms. Vance is a 38-year-old woman who was admitted through the emergency department at the request of Dr. Sagastume for further evaluation and management of abdominal pain and nausea. She is status post previous gastric bypass surgery. Over the last 6 years has had episodes of bowel obstruction and required surgical intervention. Over the last years had ongoing difficulty with abdominal pain and nausea. Symptoms have been worse now over the past 8 days with increased pain and nausea, minimal oral intake. On evaluation in the emergency department labs are unremarkable and CT scan shows no evidence of obstruction. There were some nonspecific small bowel loops with fluid and air, possibly consistent with enteritis. Abdominal Pain Score (Numeric/FACES): 8 - Related Data Allergies/Adverse Reactions: Allergies Allergy/AdvReac Type Severity Reaction Status Date / Time morphine Allergy Unknown Itching Verified 06/12/19 13:24 Penicillins Allergy Unknown Hives Verified 06/12/19 13:24 fentanyl Allergy Itching Verified 06/12/19 13:24 hydromorphone [From Dilaudid] Allergy Itching Verified 06/12/19 13:24 Home Medications: Home Meds DULoxetine [Cymbalta] 120 mg PO BEDTIME 08/24/14 [History] Docusate Sodium/Sennosides [Senna Plus] 2 tab PO DAILY #100 tablet 09/10/14 [Rx] Polyethylene Glycol 3350 [Miralax] 34 gm PO BID PRN 12/19/14 [History] Cholecalciferol (Vitamin D3) [Vitamin D3] 1,600 unit PO DAILY 02/26/15 [History] Mirtazapine 15 mg PO BEDTIME 02/26/15 [History] Cyclobenzaprine [Flexeril] 10 mg PO TID PRN #36 tablet 05/09/15 [Rx] Milk Thistle 175 mg PO BID 12/30/16 [History] Lubiprostone [Amitiza] 24 mcg PO BID #60 cap 01/01/17 [Rx] Ascorbic Acid [Vitamin C] 250 mg PO DAILY 06/12/19 [History] Cyanocobalamin (Vitamin B-12) [Cyanocobalamin Injection] 1,000 mcg IM Q30D 06/11 [History] Dextroamphetamine/Amphetamine [Adderall 20 mg Tablet] 20 mg PO BEDTIME 06/12/19 [History] Dextroamphetamine/Amphetamine [Adderall] 30 mg PO BID 06/12/19 [History] Minocycline [Minocin] 50 mg PO BID 06/12/19 [History] Pantoprazole [ProTONIX] 40 mg PO DAILY 06/12/19 [History] cloNIDine HCL [Clonidine HCl] 0.1 mg PO BID 06/12/19 [History] Past Medical History HEENT History: Reports: Impaired Vision Respiratory History: Reports: Pneumothorax Gastrointestinal History: Reports: Bowel Obstruction, Chronic Constipation, Chronic Diarrhea, Other (See Below) Other Gastrointestinal History: episosdes weekly since 12/25. 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, Musculoskeletal History: Reports: Fracture Psychiatric History: Reports: ADHD, Addiction, Anxiety, Bipolar, Depression, Panic Attack, Psych Hospitalization(s), PTSD, Suicide Attempt Hematologic History: Reports: Anemia, B12 Deficiency - Infectious Disease History Infectious Disease History: Reports: Chicken Pox - Past Surgical History HEENT Surgical History: Reports: Oral Surgery, Tonsillectomy GI Surgical History: Reports: Appendectomy, Bariatric Procedure, Cholecystectomy , Colonoscopy, EGD, Hernia, Abdominal, Hernia Repair/Other Female Surgical History: Reports: Section, Hysterectomy Musculoskeletal Surgical History: Reports: Other (See Below) Social & Family History - Family History Family Medical History: Unobtainable - Tobacco Use Smoking Status *Q: Current Every Day Smoker Years of Tobacco use: 20 Packs/Tins Daily: 1 - Caffeine Use Caffeine Use: Reports: Coffee - Alcohol Use Days Per Week of Alcohol Use: 2 Number of Drinks Per Day: 2 Total Drinks Per Week: 4 - Recreational Drug Use Recreational Drug Use: Yes Drug Use in Last 12 Months: Yes Recreational Drug Type: Reports: Marijuana/Hashish H&P Review of Systems - Review of Systems: Review Of Systems: See Below General: Reports: Weakness, Decreased Appetite. Denies: Fever, Chills, Malaise HEENT: Reports: No Symptoms Pulmonary: Reports: No Symptoms Cardiovascular: Reports: No Symptoms Gastrointestinal: Reports: Abdominal Pain, Decreased Appetite, Nausea. Denies: Diarrhea, Difficulty Swallowing, Hematemesis, Hematochezia, Melena, Vomiting Genitourinary: Reports: No Symptoms Musculoskeletal: Reports: Back Pain Skin: Reports: No Symptoms Psychiatric: Reports: No Symptoms Neurological: Reports: No Symptoms Hematologic/Lymphatic: Reports: No Symptoms Immunologic: Reports: No Symptoms Exam - Exam Exam: See Below - Vital Signs Vital Signs: Last Vital Signs Temp 97.2 F 06/12/19 13:20 Pulse 72 06/12/19 17:08 Resp 20 06/12/19 14:48 BP 118/52 L 06/12/19 17:08 Pulse Ox 100 06/12/19 14:48 Weight: 154 lb 8.705 oz - Exam General: Alert, Oriented, Cooperative, Mild Distress HEENT: Conjunctiva Clear, Hearing Intact, Mucosa Moist & [place], Normal Nasal Septum, Posterior Pharynx Clear, Pupils Equal Neck: Supple, Trachea Midline Lungs: Clear to Auscultation, Normal Respiratory Effort Cardiovascular: Regular Rate, Regular Rhythm, Normal S1, Normal S2. No: Systolic Murmur, Diastolic Murmur GI/Abdominal Exam: Soft, No Organomegaly, Tender. No: Distended, Guarding, Rigid, Rebound Back Exam: Normal Inspection, Full Range of Motion Extremities: Non-Tender, No Pedal Edema Skin: Warm, Dry, Intact Neurological: Cranial Nerves Intact, Strength Equal Bilateral, Normal Speech, Normal Tone, Sensation Intact. No: Focal Deficit Neuro Extensive - Mental Status: Alert, Oriented x3, Normal Mood/Affect, Normal Cognition, Memory Intact - Patient Data Lab Results Last 24 hrs: Laboratory Results - last 24 hr 06/12/19 06/12/19 06/12/19 Range/Units 14:21 14:21 15:36 WBC 10.0 (4.5-11.0) K/uL RBC 4.27 (3.30-5.50) M/uL Hgb 12.3 D (12.0-15.0) g/dL Hct 37.2 (36.0-48.0) % MCV 87 (80-98) fL MCH 29 (27-31) pg MCHC 33 (32-36) % Plt Count 315 (150-400) K/uL Neut % (Auto) 66 (36-66) % Lymph % (Auto) 26 (24-44) % [place] % (Auto) 6 (2-6) % Eos % (Auto) 1 L (2-4) % Baso % (Auto) 0 (0-1) % Sodium 138 L (140-148) mmol/L Potassium 4.5 (3.6-5.2) mmol/L Chloride 104 (100-108) mmol/L Carbon Dioxide 24 (21-32) mmol/L Anion Gap 14.5 H (5.0-14.0) mmol/L BUN 9 (7-18) mg/dL Creatinine 0.7 (0.6-1.0) mg/dL Est Cr Clr Drug Dosing 102.01 mL/min Estimated GFR (MDRD) > 60 (>60) Glucose 87 (74-106) mg/dL Lactic Acid 1.4 (0.4-2.0) mmol/L Calcium 8.7 (8.5-10.1) mg/dL Total Bilirubin 0.4 D (0.2-1.0) mg/dL AST 19 (15-37) U/L ALT 25 (12-78) U/L Alkaline Phosphatase 63 (46-116) U/L Total Protein 6.9 (6.4-8.2) g/dL Albumin 3.9 (3.4-5.0) g/dL Globulin 3.0 (2.3-3.5) g/dL Albumin/Globulin Ratio 1.3 (1.2-2.2) Result Diagrams: 06/12/19 14:21 06/12/19 14:21 Sepsis Event Note - Evaluation Sepsis Screening Result: No Definite Risk - Focused Exam Vital Signs: Vital Signs Temp Pulse Resp BP Pulse Ox 06/12/19 17:08 72 118/52 L 06/12/19 15:50 72 113/50 L 06/12/19 14:48 77 20 116/62 100 06/12/19 13:20 97.2 F 81 14 110/58 L 100 Date Exam was Performed: 06/12/19 Time Exam was Performed: 17:50 *Q Meaningful Use (ADM) - VTE Risk Assess *Q Each Risk Factor Represents 1 Point: None Total Score 1 Point Risk Factors: 0 Each Risk Factor Represents 2 Points: None Total Score 2 Point Risk Factors: 0 Each Risk Factor Represents 3 Points: None Total Score 3 Point Risk Factors: 0 Each Risk Factor Represents 5 Points: None Total Score 5 Point Risk Factors: 0 Venous Thromboembolism Risk Factor Score *Q: 0 Problem List Initiated/Reviewed/Updated: Yes Orders Last 24hrs: Active Orders 24 hr Category Date Time Status Patient Status Manage Transfer [TRANSFER] Routine ADT 06/12/19 17:15 Ordered UA W/MICROSCOPIC [URIN] Urgent Lab 06/12/19 17:15 Received Iopamidol [Isovue-300 (61%)] Med 06/12/19 15:18 Active 100 ml IV . DIRECTED PRN Sodium Chloride 0.9% [Normal Saline] 1,000 ml Med 06/12/19 14:15 Active IV ASDIRECTED Sodium Chloride 0.9% [Normal Saline] 1,000 ml Med 06/12/19 17:15 Active IV ASDIRECTED Sodium Chloride 0.9% [Normal Saline] 76 ml Med 06/12/19 15:30 Active IV ASDIRECTED Resuscitation Status Routine Resus Stat 06/12/19 17:19 Ordered Medication Orders Sodium Chloride (Normal Saline) 1,000 mls @ 999 mls/hr IV ASDIRECTED EDELMIRA Last Admin: 06/12/19 14:35 Dose: 999 mls/hr Sodium Chloride (Normal Saline) 76 mls @ 3.2 mls/sec IV ASDIRECTED EDELMIRA Stop: 06/13/19 15:31 Last Admin: 06/12/19 15:30 Dose: 3.2 mls/sec Sodium Chloride (Normal Saline) 1,000 mls @ 999 mls/hr IV ASDIRECTED EDELMIRA Iopamidol (Isovue-300 (61%)) 100 ml IV . DIRECTED PRN PRN Reason: RADIOLOGY EXAM Stop: 06/13/19 15:19 Last Admin: 06/12/19 15:30 Dose: 100 ml Assessment/Plan Comment:: ASSESSMENT AND PLAN ABDOMINAL PAIN AND NAUSEA-absent been present for some time, worse over the past 8 days. Evaluation in the emergency department essentially unremarkable other than nonspecific fluid and air in small bowel loops, possible enteritis. -IV fluids for hydration -Nausea and pain medication as needed -Clear liquid diet -Dr. Sagastume to see in a.m. STATUS POST GASTRIC BYPASS SURGERY MAINTENANCE ISSUES -DVT prophylaxis; not indicated -GI prophylaxis; continue outpatient PPI therapy -Pimentel catheter; not indicated -Nutrition; clear liquid diet -Nicotine dependence; 21 mg nicotine patch CODE STATUS-FULL CODE ADMISSION STATUS-this patient will be admitted to observation status, expect no more than a one night hospital stay for evaluation and management of problems as outlined above. DISPOSITION-anticipate discharge to home after the hospital stay. PRIMARY CARE PROVIDER-Dr. Arroyo - Mortality Measure Prognosis:: Good
[2019-06-12] MEDS ORDERED: Polyethylene Glycol 3350 Powder 17 GM Packet PO PRN (17:58)
[2019-06-12] MEDS ORDERED: Sodium Chloride 0.9% 10 ML Syringe FLUSH PRN (17:58)
[2019-06-12] MEDS ORDERED: Cyanocobalamin (Vitamin B12) 1,000 MCG/ML SDV IM SCH (17:58)
[2019-06-12] MEDS: Mirtazapine 15 MG Tab PO SCH (20:30)
[2019-06-12] MEDS: cloNIDine 0.1 MG Tab PO SCH (20:31)
[2019-06-12] MEDS: Nicotine 21 MG/24 Hr Patch TRDERM SCH (21:26)
[2019-06-12] MEDS: Lubiprostone 24 MCG Cap PO SCH (21:27)
[2019-06-12] MEDS: HYDROmorphone 0.5 MG/0.5 ML Syringe IVPUSH PRN (21:28)
[2019-06-12] MEDS: Amphetamine/Dextroamphetamine Salts 10 MG Tab PO SCH (21:40)
[2019-06-12] MEDS ORDERED: DULoxetine 20 MG Cap ONE (22:19)
[2019-06-12] MEDS: DULoxetine 30 MG Cap PO SCH (22:33)
[2019-06-12] MEDS: diphenhydrAMINE 50 MG/ML SDV IVPUSH PRN (22:44)
[2019-06-12] MEDS: Sodium Chloride 0.9% 1,000 ML IV SCH (23:13)
[2019-06-13] MEDS: HYDROmorphone 0.5 MG/0.5 ML Syringe IVPUSH PRN ×6 (00:26→20:47)
[2019-06-13] MEDS: Ondansetron 4 MG/2 ML SDV IV PRN ×2 (00:45→14:13)
[2019-06-13] MEDS: Sodium Chloride 0.9% 1,000 ML IV SCH ×2 (07:22→19:23)
[2019-06-13] MEDS ORDERED: Iopamidol 612 MG/ML 100 ML Bottle IV PRN (08:16)
[2019-06-13] MEDS ORDERED: Cyanocobalamin (Vitamin B12) 1,000 MCG/ML SDV IM SCH (09:00)
[2019-06-13] MEDS ORDERED: Amphetamine/Dextroamphetamine Salts 10 MG Tab PO SCH (09:00)
[2019-06-13] MEDS ORDERED: Ascorbic Acid 500 MG Tab PO SCH (09:00)
[2019-06-13] MEDS: Cholecalciferol (Vitamin D3) 25 MCG Tab PO SCH (10:23)
[2019-06-13] MEDS: Ascorbic Acid 500 MG Tab PO SCH (10:24)
[2019-06-13] MEDS: Lubiprostone 24 MCG Cap PO SCH ×2 (10:24→17:20)
[2019-06-13] MEDS: Pantoprazole 40 MG Tab.CR PO SCH (10:25)
[2019-06-13] MEDS: Nicotine 21 MG/24 Hr Patch TRDERM SCH (10:27)
[2019-06-13] MEDS ORDERED: Amphetamine/Dextroamphetamine Salts 10 MG Tab PO ONE ×2 (10:45→14:45)
[2019-06-13] MEDS: diphenhydrAMINE 50 MG/ML SDV IVPUSH PRN ×2 (11:04→20:47)
[2019-06-13] MEDS: cloNIDine 0.1 MG Tab PO SCH ×2 (11:34→20:48)
--- NOTE | 2019-06-13 13:07 | CRLCR ---
Indication: Small-bowel obstruction. Technique: Upper GI with small-bowel follow-through 5 views Comparison: CT abdomen pelvis June 12, 2019 Findings/Impression: Oral contrast appears to pass easily through the stomach into the small bowel. The contrast has not reached the colon. Multiple dilated loops of small bowel and colon persist. Bowel obstruction cannot be confirmed nor excluded on this exam. No other significant findings. Dictated by Rhys Zuniga MD @ Jun 13 2019 1:01PM Signed by Dr. Rhys Zuniga @ Jun 13 2019 1:06PM
[2019-06-13] MEDS: Acetaminophen 325 MG Tab PO PRN (16:21)
[2019-06-13] MEDS ORDERED: Sodium Ferric Gluconate Cmplex 250 MG in Sodium Chloride 0.9% 100 ML IV SCH (17:00)
[2019-06-13] MEDS: Amphetamine/Dextroamphetamine Salts 10 MG Tab PO SCH (20:42)
[2019-06-13] MEDS: DULoxetine 30 MG Cap PO SCH (20:50)
[2019-06-13] MEDS: Mirtazapine 15 MG Tab PO SCH (20:50)
[2019-06-14] MEDS: HYDROmorphone 0.5 MG/0.5 ML Syringe IVPUSH PRN ×5 (03:21→21:28)
[2019-06-14] MEDS: diphenhydrAMINE 50 MG/ML SDV IVPUSH PRN ×4 (03:21→21:28)
[2019-06-14] MEDS: Sodium Chloride 0.9% 1,000 ML IV SCH (03:21)
[2019-06-14] MEDS ORDERED: Propofol 200 MG/20 ML SDV ONE (06:58)
[2019-06-14] MEDS ORDERED: Midazolam 1 MG/ML 2 ML SDV ONE (06:58)
[2019-06-14] MEDS ORDERED: fentaNYL 100 MCG/2 ML SDV ONE (06:58)
[2019-06-14] MEDS ORDERED: Glycopyrrolate 0.2 MG/ML 2 ML SDV IV ONE (07:15)
[2019-06-14] MEDS: Pantoprazole 40 MG Tab.CR PO SCH (08:16)
[2019-06-14] MEDS: Lubiprostone 24 MCG Cap PO SCH ×2 (08:17→17:06)
[2019-06-14] MEDS: Nicotine 21 MG/24 Hr Patch TRDERM SCH (08:18)
[2019-06-14] MEDS: Ascorbic Acid 500 MG Tab PO SCH (08:21)
[2019-06-14] MEDS: Cholecalciferol (Vitamin D3) 25 MCG Tab PO SCH (08:21)
[2019-06-14] MEDS: Dextrose 5%-Lactated Ringers 1,000 ML IV SCH (08:52)
[2019-06-14] MEDS: Amphetamine/Dextroamphetamine Salts 10 MG Tab PO SCH ×3 (09:23→21:28)
[2019-06-14] MEDS ORDERED: IRON DEXTRAN COMPLEX IV SCH (10:00)
[2019-06-14] MEDS ORDERED: SODIUM CHLORIDE 0.9% IV SCH (10:00)
[2019-06-14] MEDS ORDERED: Sodium Ferric Gluconate Cmplex 250 MG in Sodium Chloride 0.9% 100 ML IV SCH (11:00)
[2019-06-14] MEDS: Acetaminophen 325 MG Tab PO PRN (14:48)
--- NOTE | 2019-06-14 15:20 | PN ---
DATE OF SERVICE: 06/13/2019 The patient was admitted overnight with abdominal pain over the last roughly [address] scan of the abdomen showed some dilated small bowel loops. She does have chronically a problem with GI tract motility. Clinically, she appears to be stable this morning. We will plan to proceed with an upper GI small bowel x-ray series today to see how things are going through the GI tract. Hill Sagastume MD /[id number]
[2019-06-14] MEDS: cloNIDine 0.1 MG Tab PO SCH ×2 (15:44→21:15)
--- NOTE | 2019-06-14 16:59 | PN ---
DATE OF SERVICE: 06/14/2019 SUBJECTIVE: Jamee was admitted yesterday for abdominal pain. She is n.p.o. for an EGD. Reports pain is controlled. Has no nausea or vomiting. REVIEW OF SYSTEMS: Remainder of review of systems was negative for any pertinent positives and negatives. OBJECTIVE: GENERAL: Jamee Vance is a 38-year-old female. Alert and orientated. VITAL SIGNS: TPR is 96.8, 70, 16, and blood pressure 84/43. HEENT: Negative. NECK: Supple. HEART: Regular rate and rhythm. LUNGS: Clear. ABDOMEN: Soft and nontender. EXTREMITIES: Without peripheral edema. ASSESSMENT: Enteritis, abdominal pain, and nausea. PLAN: 1. EGD. Orders to be written after EGD, pending results. 2. IV iron x2 doses one daily given. 3. We will evaluate p.r.n. or in a.m. Britney Hand PA-C /[id number]
[2019-06-14] MEDS: Mirtazapine 15 MG Tab PO SCH (21:17)
[2019-06-14] MEDS: DULoxetine 30 MG Cap PO SCH (21:27)
[2019-06-15] MEDS: HYDROmorphone 0.5 MG/0.5 ML Syringe IVPUSH PRN
[2019-06-15] MEDS: Dextrose 5%-Lactated Ringers 1,000 ML IV SCH ×3 (01:51→22:04)
[2019-06-15] MEDS ORDERED: Lidocaine 1% with EPINEPHrine 1:100,000 50 ML MDV ONE (06:44)
[2019-06-15] MEDS ORDERED: Meropenem 500 MG SDV ONE (06:44)
[2019-06-15] MEDS ORDERED: Bupivacaine 0.5% 50 ML MDV ONE (06:44)
[2019-06-15] MEDS ORDERED: Rocuronium 50 MG/5 ML Vial ONE ×2 (07:00→09:29)
[2019-06-15] MEDS ORDERED: Propofol 200 MG/20 ML SDV ONE (07:00)
[2019-06-15] MEDS ORDERED: Dexamethasone 4 MG/ML SDV ONE (07:00)
[2019-06-15] MEDS ORDERED: Ondansetron 4 MG/2 ML SDV ONE (07:00)
[2019-06-15] MEDS ORDERED: fentaNYL 250 MCG/5 ML SDV ONE ×2 (07:00→09:36)
[2019-06-15] MEDS ORDERED: Succinylcholine 200 MG/10 ML MDV ONE (07:00)
[2019-06-15] MEDS ORDERED: Neostigmine Methylsulfate 1 MG/ML 5 ML Syringe ONE (07:00)
[2019-06-15] MEDS ORDERED: Glycopyrrolate 0.2 MG/ML 5 ML MDV ONE (07:00)
[2019-06-15] MEDS ORDERED: Lactated Ringers 1,000 ML ONE (07:01)
[2019-06-15] MEDS ORDERED: Ketamine 50 MG in Sodium Chloride 0.9% 49.5 ML IV SCH (07:30)
[2019-06-15] MEDS ORDERED: cefOXitin 2 GM in Sodium Chloride 0.9% 50 ML IV ONE (07:30)
[2019-06-15] MEDS ORDERED: Ketamine 500 MG/5 ML MDV IV SCH (07:30)
[2019-06-15] MEDS ORDERED: Ropivacaine 36 ML, dexAMETHasone 8 MG, EPINEPHrine 0.4 MG, Sodium Chloride 0.9% 41.6 ML NERVRT SCH ×4 (07:30)
[2019-06-15] MEDS ORDERED: Magnesium Sulfate 3.4 GM in Sodium Chloride 0.9% 250 ML IV ONE (07:30)
[2019-06-15] MEDS ORDERED: Magnesium Sulfate/Water 2 GM in Premix Bag 1 BAG IV SCH (07:30)
--- NOTE | 2019-06-15 08:21 | PN ---
DATE OF SERVICE: 06/15/2019 SUBJECTIVE: Jamee is n.p.o. She will be having surgery today. She has no questions or concerns. Vital signs have been stable. Pain has been managed. REVIEW OF SYSTEMS: Remainder of review of systems negative for any pertinent positives and negatives. OBJECTIVE: GENERAL: Jamee Vance is a pleasant 38-year-old female, alert and orientated. VITAL SIGNS: TPR 98.4, 65, 16, blood pressure 121/58. HEENT: Negative. NECK: Supple. HEART: Regular rate and rhythm. LUNGS: Clear. ABDOMEN: Generalized tenderness in the midepigastric area extending to the left. EXTREMITIES: Without peripheral edema. ASSESSMENT: Gastrogastric fistula. PLAN: The patient is scheduled for OR today. Case to follow. Orders will be written postoperatively. We will evaluate p.r.n. or in a.m. Britney Hand PA-C /[id number]
[2019-06-15] MEDS: Pantoprazole 40 MG Tab.CR PO SCH (08:29)
[2019-06-15] MEDS: Lubiprostone 24 MCG Cap PO SCH (08:29)
[2019-06-15] MEDS: Amphetamine/Dextroamphetamine Salts 10 MG Tab PO SCH ×2 (08:30→16:19)
[2019-06-15] MEDS: Ascorbic Acid 500 MG Tab PO SCH (08:31)
[2019-06-15] MEDS: cloNIDine 0.1 MG Tab PO SCH ×2 (08:31→21:46)
[2019-06-15] MEDS: Cholecalciferol (Vitamin D3) 25 MCG Tab PO SCH (08:32)
[2019-06-15] MEDS ORDERED: hydrOXYzine HCL 100 MG/2 ML SDV IM ONE (11:13)
[2019-06-15] MEDS ORDERED: fentaNYL 100 MCG/2 ML SDV IVPUSH ONE (11:21)
[2019-06-15] MEDS ORDERED: Naloxone 0.4 MG/ML SDV IVPUSH PRN (11:41)
[2019-06-15] MEDS ORDERED: diphenhydrAMINE 50 MG/ML SDV IVPUSH PRN (11:41)
[2019-06-15] MEDS ORDERED: diphenhydrAMINE 25 MG Cap PO PRN (11:41)
[2019-06-15] MEDS ORDERED: Ondansetron 4 MG/2 ML SDV IVPUSH PRN ×2 (11:41→12:36)
[2019-06-15] MEDS ORDERED: Naloxone 0.4 MG/ML SDV IV PRN (11:44)
[2019-06-15] MEDS: HYDROmorphone/Normal Saline 15 MG/30 ML PCA IV PRN (12:11)
[2019-06-15] MEDS ORDERED: SCOPOLAMINE PATCH CHECK TOP SCH (12:36)
[2019-06-15] MEDS ORDERED: Calcium Gluconate 10% 1 GM/10 ML SDV IVPUSH PRN (12:36)
[2019-06-15] MEDS ORDERED: Albuterol/Ipratropium 3.0-0.5 MG/3 ML Neb Soln INH PRN (12:36)
[2019-06-15] MEDS ORDERED: Labetalol 20 MG/4 ML Syringe IVPUSH PRN (12:36)
[2019-06-15] MEDS ORDERED: Cyclobenzaprine 10 MG Tab PO PRN (12:36)
[2019-06-15] MEDS ORDERED: Metoclopramide 10 MG/2 ML SDV IVPUSH PRN (12:36)
[2019-06-15] MEDS ORDERED: Acetaminophen 500 MG Tab PO PRN (12:36)
[2019-06-15] MEDS ORDERED: Scopolamine 1.5 MG Transdermal Patch TOP PRN (13:06)
[2019-06-15] MEDS: Nicotine 21 MG/24 Hr Patch TRDERM SCH ×2 (13:57→22:46)
[2019-06-15] MEDS ORDERED: Pantoprazole 40 MG Vial IVPUSH SCH (14:00)
[2019-06-15] MEDS: cefOXitin 2 GM in Sodium Chloride 0.9% 50 ML IV SCH ×2 (15:16→21:58)
[2019-06-15] MEDS: diphenhydrAMINE 50 MG/ML SDV IVPUSH PRN ×2 (15:19→22:52)
[2019-06-15] MEDS: Gabapentin 250 MG/5 ML Solution ML 470 ML Bottle PO SCH ×2 (15:21→21:45)
[2019-06-15] MEDS: Acetaminophen 500 MG Tab PO SCH ×2 (15:26→22:00)
[2019-06-15] MEDS ORDERED: MVI, Adult with Vitamin K 10 ML, Thiamine 200 MG, Chromium/Copper/Mang/Selen/Zn 1 ML in... IV SCH ×4 (16:00)
[2019-06-15] MEDS: cloNIDine 0.1 MG Tab PO PRN (18:24)
[2019-06-15] MEDS: Heparin Sodium 5,000 Units/ML Vial SUBCUT SCH (21:46)
[2019-06-15] MEDS ORDERED: DULoxetine 30 MG Cap PO SCH (22:15)
[2019-06-15] MEDS ORDERED: Mirtazapine 15 MG Tab PO ONE (22:37)
[2019-06-16] MEDS: cefOXitin 2 GM in Sodium Chloride 0.9% 50 ML IV SCH ×3 (01:03→14:33)
[2019-06-16] MEDS ORDERED: Iopamidol 612 MG/ML 50 ML SDV PO STA (02:19)
[2019-06-16] MEDS: Dextrose 5%-Lactated Ringers 1,000 ML IV SCH (04:06)
[2019-06-16] MEDS: HYDROmorphone/Normal Saline 15 MG/30 ML PCA IV PRN (05:05)
[2019-06-16] MEDS: diphenhydrAMINE 50 MG/ML SDV IVPUSH PRN (05:09)
[2019-06-16] MEDS: Acetaminophen 500 MG Tab PO SCH ×3 (05:12→21:29)
[2019-06-16] MEDS: Heparin Sodium 5,000 Units/ML Vial SUBCUT SCH ×2 (07:26→21:25)
[2019-06-16] MEDS ORDERED: Potassium Phosphates 60 MMOLE in Sodium Chloride 0.9% 250 ML IV SCH (07:45)
[2019-06-16] MEDS ORDERED: Dextrose 5%-Lactated Ringers 1,000 ML IV SCH (07:46)
[2019-06-16] MEDS: Potassium Phos in 0.9 % NaCl 15 MMOL in Premix Bag 1 BAG IV SCH ×6 (08:26→14:33)
[2019-06-16] MEDS: cloNIDine 0.1 MG Tab PO SCH ×2 (08:30→21:30)
[2019-06-16] MEDS: Nicotine 21 MG/24 Hr Patch TRDERM SCH (08:32)
[2019-06-16] MEDS: Gabapentin 250 MG/5 ML Solution ML 470 ML Bottle PO SCH (08:46)
--- NOTE | 2019-06-16 08:52 | CRLCR ---
Indication: Post bariatric surgery. Technique: Upper GI for views Comparison: None Findings/Impression: Unremarkable exam. No sign of oral contrast extravasation to suggest leak. No signs of obstruction. Drainage catheters present in the left upper quadrant. Dictated by Rhys Zuniga MD @ Jun 16 2019 8:23AM Signed by Dr. Rhys Zuniga @ Jun 16 2019 8:50AM
[2019-06-16] MEDS ORDERED: Amphetamine/Dextroamphetamine Salts 10 MG Tab PO SCH ×2 (09:00→21:00)
[2019-06-16] MEDS ORDERED: Celecoxib 200 MG Cap PO SCH (09:00)
[2019-06-16] MEDS: Amphetamine/Dextroamphetamine Salts 10 MG Tab PO SCH ×3 (11:25→16:33)
[2019-06-16] MEDS: HYDROmorphone 2 MG Tab PO PRN ×3 (13:44→21:45)
[2019-06-16] MEDS ORDERED: Ondansetron 4 MG Tab.DIS PO PRN (14:27)
--- NOTE | 2019-06-16 14:43 | PN ---
DATE OF SERVICE: 06/16/2019 SUBJECTIVE: Jamee is postoperative day #1. She states her pain has been controlled. Upper GI was normal. KACY drains have put out 135 and 115 of a light red drainage respectively. Jamee would like to restart all her home meds. REVIEW OF SYSTEMS: Remainder of review of systems negative for any pertinent positives and negatives. OBJECTIVE: GENERAL: Jamee Vance is a 38-year-old female. VITAL SIGNS: TPR at 07:40 is 98.4, 87, 16, blood pressure 125/59. HEENT: Negative. NECK: Supple. HEART: Regular rate and rhythm. LUNGS: Clear. ABDOMEN: Dressings dry and intact. KACY drains as above. Abdominal binder has been on. EXTREMITIES: Without peripheral edema. ASSESSMENT: Exploratory laparotomy with lysis of extensive adhesions. 1. Esophagogastrectomy with Silvestre-en-Y with esophageal junction with en bloc portal left hepatic lobectomy and resection of portion of diaphragm. 2. Reduction of small bowel volvulus and closure of internal hernia. 3. Tube decompression of small bowel. 4. Repair of incisional hernia. 5. Placement of Interceed mesh for status post Silvestre-en-Y gastric bypass surgery with extensive intraabdominal adhesions and gastrogastric fistula, marginal ulcer with penetration and adherence to left lobe of liver and diaphragm, deserosalization of the small bowel, small bowel volvulus, dilation of portion of the small bowel, incisional hernia. 6. Date of surgery: 06/15/2019. Surgeon: Hill Sagastume MD. PLAN: 1. Discontinue Pimentel catheter. 2. Step 2 gastric bypass diet with cereal starting today and the patient should be on this for 2 weeks. 3. K-Phos 60 mmol IV 1 time. 4. The patient is requesting her Adderall restarted. All other medications were restarted. 5. May shower. 6. One of her IV is infiltrated and she did not want to have an IV started. The other IV has K-Phos running, so OUTBOUND TELEMARKETING REPRESENTATIVE was discontinued and the patient was started on Dilaudid 2 mg 1 to 2 q.4 hours p.r.n. severe pain. 7. Good pulmonary toilet. 8. We will evaluate p.r.n. or in a.m. Britney Hand PA-C /[id number]
[2019-06-16] MEDS: cloNIDine 0.1 MG Tab PO PRN (15:10)
[2019-06-16] MEDS: hydrOXYzine HCL 100 MG/2 ML SDV IM PRN (15:17)
[2019-06-16] MEDS: Pantoprazole 40 MG Delayed-Release Granules 1 Packet PO SCH (16:33)
[2019-06-16] MEDS: diphenhydrAMINE 25 MG Cap PO PRN (19:48)
[2019-06-16] MEDS: DULoxetine 30 MG Cap PO SCH (21:27)
[2019-06-16] MEDS: Mirtazapine 15 MG Tab PO SCH (21:28)
[2019-06-16] MEDS: Lubiprostone 24 MCG Cap PO SCH (23:23)
[2019-06-17] MEDS: HYDROmorphone 2 MG Tab PO PRN ×6 (01:04→21:21)
[2019-06-17] MEDS: hydrOXYzine HCL 100 MG/2 ML SDV IM PRN ×3 (04:08→21:20)
[2019-06-17] MEDS: diphenhydrAMINE 25 MG Cap PO PRN ×2 (04:09→20:59)
[2019-06-17] MEDS: Acetaminophen 500 MG Tab PO SCH ×3 (05:13→21:32)
[2019-06-17] MEDS: Heparin Sodium 5,000 Units/ML Vial SUBCUT SCH ×2 (07:53→21:20)
[2019-06-17] MEDS: Nicotine 21 MG/24 Hr Patch TRDERM SCH (08:01)
[2019-06-17] MEDS: cloNIDine 0.1 MG Tab PO SCH ×2 (08:04→20:59)
[2019-06-17] MEDS: Amphetamine/Dextroamphetamine Salts 10 MG Tab PO SCH ×3 (08:12→17:09)
[2019-06-17] MEDS: Lubiprostone 24 MCG Cap PO SCH ×2 (08:12→17:10)
[2019-06-17] MEDS ORDERED: Cyanocobalamin (Vitamin B12) 1,000 MCG/ML SDV IM ONE (09:00)
[2019-06-17] MEDS: Docusate Sodium 100 MG Cap PO SCH ×2 (09:27→21:31)
[2019-06-17] MEDS ORDERED: Bisacodyl 10 MG Supp RECTAL ONE (14:41)
[2019-06-17] MEDS: Pantoprazole 40 MG Delayed-Release Granules 1 Packet PO SCH (17:10)
[2019-06-17] MEDS: DULoxetine 30 MG Cap PO SCH (21:31)
[2019-06-17] MEDS: Mirtazapine 15 MG Tab PO SCH (21:32)
[2019-06-18] MEDS: HYDROmorphone 2 MG Tab PO PRN (01:38)
[2019-06-18] MEDS: diphenhydrAMINE 25 MG Cap PO PRN (01:41)
[2019-06-18] MEDS: Acetaminophen 500 MG Tab PO SCH (06:37)
[2019-06-18] MEDS ORDERED: Magnesium Hydroxide 400 MG/5 ML Susp 30 ML Cup PO PRN (07:29)
[2019-06-18 07:32] VITALS: BP 103/53; PULSE 76
[2019-06-18] MEDS: cloNIDine 0.1 MG Tab PO PRN (07:32)
[2019-06-18] MEDS: Lubiprostone 24 MCG Cap PO SCH (07:32)
[2019-06-18] MEDS: Heparin Sodium 5,000 Units/ML Vial SUBCUT SCH (07:33)
[2019-06-18] MEDS: Amphetamine/Dextroamphetamine Salts 10 MG Tab PO SCH (08:57)
[2019-06-18] MEDS: cloNIDine 0.1 MG Tab PO SCH (08:59)
[2019-06-18] MEDS: Docusate Sodium 100 MG Cap PO SCH (08:59)
[2019-06-18] MEDS: Nicotine 21 MG/24 Hr Patch TRDERM SCH (09:52)
--- NOTE | 2019-06-19 14:21 | PN ---
DATE OF SERVICE: 06/17/2019 The patient has been afebrile with stable vital signs. Has not moved her bowels yet and that has been a chronic issue with her. We will work on bowel stimulation today. She is on Amitiza. We will go over to a step-3 diet and she maybe ready for discharge home tomorrow. Hill Sagastume MD /[id number]
--- NOTE | 2019-06-19 15:26 | DISCH ---
FINAL DIAGNOSES: 1. Partial small-bowel obstruction. 2. Gastrogastric fistula. 3. Marginal ulcer with penetration and adherence to the left lobe of the liver and diaphragm. 4. Incisional hernia. SECONDARY DIAGNOSES: 1. Bariatric surgery status. 2. Attention deficit disorder. 3. Treated hypothyroidism. OPERATIVE PROCEDURES: 1. On 06/13/2019, upper gastrointestinal endoscopy with biopsies of gastric pouch for CLOtest. 2. On 06/15/2019, exploratory laparotomy with lysis of extensive adhesions and: a. Esophagogastrectomy with Silvestre-en-Y esophagojejunostomy with en bloc partial left hepatic lobectomy and resection of portion of the diaphragm. b. Reduction of small bowel volvulus, closure of internal hernia. c. Tube decompression of distended small bowel. d. Repair of incisional hernia. e. Placement of Interceed mesh for limitation of recurrent adhesion formation. SUMMARY: This is a 38-year-old status post previous Silvestre-en-Y gastric bypass, presenting with increasing abdominal pain. The picture was suggestive of a partial small-bowel obstruction. On the day of admission, the patient underwent an upper GI x-ray with small- bowel follow-through, which was suggestive of a gastrogastric fistula. Following that, the patient underwent an upper endoscopy, which showed the fistula to be present, and she had a large marginal ulcer also present. Given this, the patient underwent exploratory laparotomy with the above-noted procedures. The ulcer had penetrated quite a bit into the liver and also caused inflammatory adherence to the diaphragm. The patient's bowel obstruction symptoms appeared to be related to a small bowel volvulus with a portion of the small bowel related to the volvulus being markedly distended and was decompressed intraoperatively, and she had incidental incisional hernia repaired. Postoperatively, the patient has done well. At this point, she is tolerating oral pain medications and a step 3 diet. She will be sent home on her usual medications plus gabapentin 300 mg p.o. t.i.d. #90 and Dilaudid 2 mg p.o. q.4 hours p.r.n. pain #42. Followup will be with Britney Hand PA-C, in [facility] on 06/26/2019.
--- NOTE | 2019-06-21 16:30 | OR ---
DATE OF PROCEDURE: 06/14/2019 SURGEON: Hill Sagastume MD PREOPERATIVE DIAGNOSIS: Epigastric pain and nausea. POSTOPERATIVE DIAGNOSES: Epigastric pain and nausea associated with: 1. Gastrogastric fistula, status post previous Silvestre-en-Y gastric bypass. 2. Large marginal ulcer in the jejunum adjacent to gastrojejunostomy. OPERATIVE PROCEDURE: Upper GI endoscopy with biopsy of gastric pouch for CLOtest. ANESTHESIA: IV sedation. INDICATIONS FOR PROCEDURE: A 38-year-old presenting with increasing upper abdominal pain, status post previous Silvestre-en-Y gastric bypass. She has been noted also to have some recent relative weight regain. Plan is to proceed with an upper GI endoscopy with biopsies as indicated. Potential risks including bleeding and perforation were discussed, and the patient wishes to proceed. DETAILS OF PROCEDURE: The patient was taken to the operating room and placed in a left lateral decubitus position. IV sedation was administered, after which the upper GI endoscope was passed orally through the length of the esophagus and into the gastric pouch, from there through the gastrojejunostomy roughly 20 cm into the Silvestre limb. The findings included normal exam proximal to the gastric pouch. At the level of the mid left aspect of the gastric pouch, the patient was noted to have an obvious gastrogastric fistula with the scope being able to be passed through the remainder of the stomach. This was associated with some redness related to bile irritation. The patient also had a quite large roughly 1.5 to 2 cm marginal ulcer posteriorly directly adjacent to the gastrojejunostomy within the Silvestre limb, i.e., in the typical location. This was covered with fibrinous exudate. At this point, biopsies were taken from the pouch and sent for CLOtest for H pylori. Minimal bleeding from the biopsy sites was seen and the procedure was then concluded. Situation will be discussed with the patient later on today. This area will likely need to be resected, and we will plan to do that tomorrow. Hill Sagastume MD /[id number]
--- NOTE | 2019-06-26 13:05 | OR ---
DATE OF PROCEDURE: 06/15/2019 SURGEON: Hill Sagastume MD PREOPERATIVE DIAGNOSES: Status post Silvestre-en-Y gastric bypass with: 1. Gastrogastric fistula. 2. Marginal ulcer. POSTOPERATIVE DIAGNOSES: Status post Silvestre-en-Y gastric bypass with extensive intraabdominal adhesions and: 1. Gastrogastric fistula. 2. Marginal ulcer with penetration/adherence to left lobe of liver and diaphragm. 3. Area of deserosalization of small bowel. 4. Small bowel volvulus. 5. Marked dilation of portion of small bowel. 6. Incisional hernia. OPERATIVE PROCEDURES: 1. Exploratory laparotomy with lysis of extensive adhesions and: a. Esophagogastrectomy with Silvestre-en-Y esophagojejunostomy (74583). b. En bloc partial left hepatic lobectomy (34957). c. Resection of portion of diaphragm (95800). 2. Reduction of small bowel volvulus and closure of internal hernia. 3. Tube decompression of small bowel. 4. Repair of incisional hernia. 5. Placement of Interceed mesh to displace pelvic and abdominal wall from underlying viscera to limit recurrent adhesion formation. 6. Separate small bowel resection (26855). ANESTHESIA: General. UNDERWRITER SOLICITATION DIRECTOR: Britney Hand PA-C INDICATIONS FOR PROCEDURE: The patient presents with ongoing upper abdominal pain as well as significant weight regain. Upper endoscopy performed yesterday showed a large gastrogastric fistula between the gastric pouch and the bypassed stomach, and also a large marginal ulcer beginning at the gastrojejunostomy and extending over roughly one quarter of the circumference of that anastomosis. Plan is to proceed with exploratory laparotomy with resection of the gastrogastric fistula, as well as gastrojejunostomy with subsequent reconstruction, and other procedures as indicated. Potential risks including bleeding, infection, injury to the underlying viscera, leaks from various GI tract closures were all reviewed, and the patient wishes to proceed. DETAILS OF PROCEDURE: The patient was taken to the operating room. After general endotracheal anesthesia was induced, a Pimenetl catheter was inserted, and the abdomen prepped and draped. An upper midline incision was made from the xiphoid down to somewhat below the level of the umbilicus. At the lower end of the incision, there was an incisional hernia present. This had some omentum within it, which was dissected free, along with the hernia sac. Further extensive adhesions were then undertaken in the abdomen in general. Eventually, dissection continued up to the area of the gastric pouch and gastrojejunostomy. It was noted that the patient had obviously a palpable firm mass at the level of the gastrojejunostomy on its anterior segment, and this had become adherent to the posterior aspect of the left lobe of liver, as well as the intervening diaphragm. The level of inflammation extended up above the level of the esophagogastric junction, and at that point, a decision was made to proceed with resection of the gastric pouch, area of the gastrojejunostomy, along with adherence of liver and diaphragm. Initially, the lateral aspect of segments II and III of liver were divided with MIGUELITO diana. This then allowed further resection onto the area of the diaphragm. A partial-thickness layer of diaphragm, which was adherent to the inflammatory mass, was then accomplished with electrocautery. Once that was completed, there was some bleeding from the diaphragmatic surfaces, which was then controlled with some 2-0 Vicryl sutures. This then allowed dissection into the area of the distal esophagus. This was eventually encircled using a combination of blunt and cautery dissection, and at that point, the distal esophagus just above the esophagogastric junction was divided with the MIGUELITO black loads. This involved division of the small bowel adjacent to the gastrojejunostomy with MIGUELITO diana as well. The adherent portion of the bypassed stomach was then also resected. Some additional stomach was then subsequently resected to allow a more adequate mobility of the Silvestre limb up to the divided esophagus. The vascular attachments along these were progressively divided with Harmonic scalpel and diana. Care was taken to avoid injury to the pancreas and splenic vessels, as they were fairly adherent as well to the area of inflammation. The 2 specimens out of the large portion of the bypassed stomach, as well as part of the bypassed stomach and the esophagogastrectomy specimen were then delivered from the field. At this point, further inspection of the small bowel showed an area of focal small bowel volvulus with a portion of the previous Silvestre limb being rotated between the leaves of the jejunojejunostomy. This was reduced and noted the biliopancreatic limb was extremely dilated and portion of this was also somewhat deserosalized, after the dissection away from some adhesions within the area of the volvulus. At that point, a portion of the biliopancreatic limb was divided proximally and distally and the underlying mesentery and all of these divisions being accomplished with MIGUELITO diana. The distended Silvestre limb proximally was then opened and tube placed, which decompressed a large amount of bilious fluid to provide reduction of the distended proximal biliopancreatic limb. GI tract continuity was accomplished at that point with an internal firing of the Endo-MIGUELITO 60 mm to accomplish [id number] anastomosis to remaining portions of the biliopancreatic limb. Common opening was then closed transversely with the same stapler and the angles of anastomosis and mesenteric defect approximated with some 3-0 Vicryl stitch. At this point, the mesenteric defect underneath the area of volvulus was closed with a running 2-0 silk stitch. The divided end of the Silvestre limb was then brought up to the level of the divided esophagus without tension. The anvil of a 25 mm EEA stapler was attached to [place] sump tube, brought down through the mouth, and taken out through a small opening in the distal esophagus. The main body of the EEA stapler was then brought up to Silvestre limb and united with the anvil, thus creating the esophagojejunostomy. Upon removal of the stapler, double donuts of mucosa were noted within it and small bowel was closed off with a vascular staple line. The esophagojejunostomy was then reinforced with some 3-0 Vicryl seromuscular stitch, along with fibrin sealant. The Silvestre limb had been brought up through a retrocolic approach and the mesenteric defect through which that passed was then also approximated to the mesentery and bowel as it passed through that defect. At this point, no further major problems were noted intra-abdominally. The abdomen was irrigated with meropenem-containing saline solution, and the hernia was initially closed inferiorly with a running #2 Vicryl stitch. Interceed mesh was then placed across the incision using 2 segments of Interceed mesh placed under the incision, as well as extending down along the pelvic sidewall. The midline fascia was then approximated with continuation of the #2 Vicryl stitch. Subcutaneous tissue was closed with 2 layers of 3-0 and 4-0 Vicryl stitch deep and diana for the skin. Two drains were then placed to the left subcostal area and positioned adjacent to the esophagojejunostomy. These were sutured to skin with some 3-0 Vicryl stitch. The patient also received bilateral transversus abdominis plane blocks intraoperatively, and the incision was anesthetized with 0.5% Marcaine. The patient was taken to the recovery room in satisfactory condition. Physician project administrative assistant, Britney Hand, played an essential role in assisting in this case, helping to position the patient, retract structures as needed, as well as suturing and cutting sutures when indicated. Her presence improved patient safety and decreased operative time. Hill Sagastume MD /[id number]
== END 2019-06-18 11:18 | disposition home or self-care (01) | DRG 330 ==
LOC: JP.ED 12:27 → JP.MS 17:15 → OBSVTOIN 06-15 11:10
PROVIDERS: ADMIT Hospitalist; ATTEND Surgery
PROC: 0DNW0ZZ Release Peritoneum, Open Approach (ICD-10-PCS; principal; 2019-06-15)
PROC: 0DB80ZZ Excision of Small Intestine, Open Approach (ICD-10-PCS; 2019-06-15)
PROC: 0FB20ZZ Excision of Left Lobe Liver, Open Approach (ICD-10-PCS; 2019-06-15)
PROC: 0BBT0ZZ Excision of Diaphragm, Open Approach (ICD-10-PCS; 2019-06-15)
PROC: 0DS80ZZ Reposition Small Intestine, Open Approach (ICD-10-PCS; 2019-06-15)
PROC: 0D988ZZ Drainage of Small Intestine, Via Natural or Artificial Opening Endoscopic (ICD-10-PCS; 2019-06-15)
PROC: 0WQF0ZZ Repair Abdominal Wall, Open Approach (ICD-10-PCS; 2019-06-15)
PROC: 3E0M05Z Introduction of Adhesion Barrier into Peritoneal Cavity, Open Approach (ICD-10-PCS; 2019-06-15)
PROC: 0DB68ZX Excision of Stomach, Via Natural or Artificial Opening Endoscopic, Diagnostic (ICD-10-PCS; 2019-06-15)
DX: K56.51 Intestinal adhesions [bands], with partial obstruction (principal); K31.6 Fistula of stomach and duodenum; H54.7 Unspecified visual loss; F41.9 Anxiety disorder, unspecified; K56.2 Volvulus; F31.9 Bipolar disorder, unspecified; E53.8 Deficiency of other specified B group vitamins; K28.9 Gastrojejunal ulcer, unspecified as acute or chronic, without hemorrhage or perforation; F17.210 Nicotine dependence, cigarettes, uncomplicated; K59.09 Other constipation; K52.9 Noninfective gastroenteritis and colitis, unspecified; K43.2 Incisional hernia without obstruction or gangrene; F98.8 Other specified behavioral and emotional disorders with onset usually occurring in childhood and adolescence; E03.9 Hypothyroidism, unspecified; Z88.0 Allergy status to penicillin; Z88.5 Allergy status to narcotic agent; Z88.8 Allergy status to other drugs, medicaments and biological substances; Z90.89 Acquired absence of other organs; Z90.49 Acquired absence of other specified parts of digestive tract; Z90.710 Acquired absence of both cervix and uterus; Z98.890 Other specified postprocedural states; Z98.84 Bariatric surgery status; Z79.899 Other long term (current) drug therapy
CPT/HCPCS: 36415; 74177; 74240; 74248; 80053; 81001; 82728; 83605; 83735; 84100; 85025; 85027; 87081; 88302; 88307; 88342; 96361; 96365; 96366; 96372; 96374; 96375; 96376; 99285-25; A9270-GY; C9113; G0378; J0171; J0330; J0694; J1100; J1170; J1200; J1644; J2020; J2185; J2250; J2405; J2704; J2710; J2795; J2916; J3010; J3410; J3411; J3420; J3475; J3490; J7030; J7050; J7120; J7121; Q9967

== ENCOUNTER 2020-03-06 00:06 | Emergency (ER) | payer OTHER, MEDICAID ==
[2020-03-06 00:25] VITALS: BP 116/71; PULSE 79
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
[2020-03-06] MEDS ORDERED: Bacitracin Oint 1 GM U/D Packet TOP ONE ×2 (00:33→02:37)
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
--- NOTE | 2020-03-06 01:31 | CRLCT ---
INDICATION: Trauma TECHNIQUE: CT chest without contrast. COMPARISON: None FINDINGS: Cardiovascular structures: Heart size is normal. Thoracic aorta and main pulmonary artery are normal in caliber. Mediastinum and mora: No sign of mass or adenopathy. Lungs: Clear. Pleura and pericardium: No effusions. Chest wall and axilla: No mass or adenopathy. Bones: Possible left 7th and 8th lateral rib fractures. Fracture involving the anterior cortex of the upper sternum. Degenerative changes thoracic spine. Upper abdomen: Unremarkable. IMPRESSION: Fracture involving the anterior cortex of the upper sternum. Probable left 7th and 8th lateral rib fractures. Dictated by Issa Taveras MD @ 03/06/2020 1:30:10 AM Please note that all CT scans at this facility use dose modulation, iterative reconstruction, and/or weight-based dosing when appropriate to reduce radiation dose to as low as reasonably achievable. Dictated by: Issa Taveras MD @ 03/06/2020 01:30:22 (Electronically Signed)
== END 2020-03-06 02:51 ==
LOC: JP.ED 00:06
DX: S22.42XA Multiple fractures of ribs, left side, initial encounter for closed fracture (principal); S22.20XA Unspecified fracture of sternum, initial encounter for closed fracture; S01.112A Laceration without foreign body of left eyelid and periocular area, initial encounter; S60.512A Abrasion of left hand, initial encounter; F41.9 Anxiety disorder, unspecified; F32.9 Major depressive disorder, single episode, unspecified; Z90.49 Acquired absence of other specified parts of digestive tract; Z90.710 Acquired absence of both cervix and uterus; Z88.5 Allergy status to narcotic agent; Z88.0 Allergy status to penicillin; Z88.4 Allergy status to anesthetic agent; Z79.899 Other long term (current) drug therapy; V89.2XXA Person injured in unspecified motor-vehicle accident, traffic, initial encounter
CPT/HCPCS: 12013; 36415; 70450; 71250; 80053; 80307; 85025; 99285; J2001

== ENCOUNTER 2020-05-20 07:15 | Inpatient (IN) | payer MEDICAID ==
[2020-05-21] MEDS ORDERED: Meropenem 500 MG SDV ONE (06:40)
[2020-05-21] MEDS ORDERED: Acetaminophen 500 MG Tab ONE (06:53)
[2020-05-21] MEDS ORDERED: Scopolamine 1.5 MG Transdermal Patch ONE (06:54)
[2020-05-21] MEDS: Scopolamine 1.5 MG Transdermal Patch TOP ONE ×2 (06:58→10:07)
[2020-05-21] MEDS: Celecoxib 200 MG Cap PO ONE ×2 (07:04→10:11)
[2020-05-21] MEDS: Acetaminophen 500 MG Tab PO ONE ×2 (07:05→10:10)
[2020-05-21] MEDS ORDERED: Rocuronium 50 MG/5 ML Vial ONE (07:14)
[2020-05-21] MEDS ORDERED: Ondansetron 4 MG/2 ML SDV ONE (07:14)
[2020-05-21] MEDS ORDERED: Propofol 200 MG/20 ML SDV ONE (07:14)
[2020-05-21] MEDS ORDERED: Succinylcholine 200 MG/10 ML MDV ONE (07:14)
[2020-05-21] MEDS ORDERED: Glycopyrrolate 0.2 MG/ML 5 ML MDV ONE (07:14)
[2020-05-21] MEDS ORDERED: Dexamethasone 4 MG/ML SDV ONE (07:14)
[2020-05-21] MEDS: cefOXitin 2 GM in Sodium Chloride 0.9% 50 ML IV ONE ×2 (07:14→10:10)
[2020-05-21] MEDS ORDERED: Neostigmine Methylsulfate 1 MG/ML 5 ML Syringe ONE (07:14)
[2020-05-21] MEDS ORDERED: Dextrose 5%-Lactated Ringers 1,000 ML IV SCH ×3 (07:15→09:00)
[2020-05-21] MEDS ORDERED: fentaNYL 250 MCG/5 ML SDV ONE ×2 (07:17→07:29)
[2020-05-21] MEDS ORDERED: HYDROmorphone/Normal Saline 15 MG/30 ML PCA IV PRN (07:22)
[2020-05-21] MEDS ORDERED: Naloxone 0.4 MG/ML SDV IVPUSH PRN (07:22)
[2020-05-21] MEDS ORDERED: Naloxone 0.4 MG/ML SDV IV PRN (08:00)
[2020-05-21] MEDS ORDERED: Lidocaine 1% with EPINEPHrine 1:100,000 50 ML MDV ONE (08:13)
[2020-05-21] MEDS ORDERED: Bupivacaine 0.5% 50 ML MDV ONE (08:13)
[2020-05-21] MEDS ORDERED: Cyclobenzaprine 10 MG Tab PO PRN (10:14)
[2020-05-21] MEDS ORDERED: Magnesium Sulfate 1.7 GM in Sodium Chloride 0.9% 100 ML IV SCH (10:15)
[2020-05-21] MEDS ORDERED: Ketamine 50 MG in Sodium Chloride 0.9% 49.5 ML IV SCH (10:15)
[2020-05-21] MEDS ORDERED: Albuterol/Ipratropium 3.0-0.5 MG/3 ML Neb Soln INH PRN (10:15)
[2020-05-21] MEDS ORDERED: Ketamine 500 MG/5 ML MDV IV SCH (10:15)
[2020-05-21] MEDS: diphenhydrAMINE 50 MG/ML SDV IVPUSH PRN ×2 (10:26→16:04)
[2020-05-21] MEDS: Nicotine 21 MG/24 Hr Patch TRDERM SCH (10:26)
[2020-05-21] MEDS ORDERED: Magnesium Sulfate 2.8 GM in Sodium Chloride 0.9% 250 ML IV ONE (10:45)
[2020-05-21] MEDS ORDERED: Ondansetron 4 MG/2 ML SDV IVPUSH PRN (11:00)
[2020-05-21] MEDS ORDERED: Labetalol 20 MG/4 ML Syringe IVPUSH PRN (11:00)
[2020-05-21] MEDS ORDERED: Metoclopramide 10 MG/2 ML SDV IVPUSH PRN (11:00)
[2020-05-21] MEDS ORDERED: Acetaminophen 500 MG Tab PO PRN (11:00)
[2020-05-21] MEDS: Amphetamine/Dextroamphetamine Salts 10 MG Tab PO SCH (12:04)
[2020-05-21] MEDS: Sodium Ferric Gluconate Cmplex 250 MG in Sodium Chloride 0.9% 100 ML IV SCH (12:27)
[2020-05-21] MEDS ORDERED: cefOXitin 2 GM in Sodium Chloride 0.9% 50 ML IV SCH (14:00)
[2020-05-21] MEDS ORDERED: Pantoprazole 40 MG Vial IVPUSH SCH (14:00)
[2020-05-21] MEDS ORDERED: MVI, Adult with Vitamin K 10 ML, Thiamine 200 MG, Zinc/Copper/Manganese/Selenium 1 ML i... IV SCH ×4 (16:00)
[2020-05-21] MEDS: Acetaminophen 500 MG Tab PO SCH ×2 (16:02→21:14)
[2020-05-21] MEDS: Heparin Sodium 5,000 Units/ML Vial SUBCUT SCH (16:04)
[2020-05-21] MEDS: cefOXitin 2 GM in Sodium Chloride 0.9% 50 ML IV SCH ×2 (16:04→21:17)
[2020-05-21] MEDS: cloNIDine 0.1 MG Tab PO PRN (16:15)
[2020-05-21] MEDS ORDERED: diphenhydrAMINE 50 MG/ML SDV IVPUSH PRN (17:50)
[2020-05-21] MEDS: hydrOXYzine HCL 100 MG/2 ML SDV IM PRN (20:25)
[2020-05-21] MEDS: oxyCODONE 5 MG Tab PO PRN (20:26)
[2020-05-21] MEDS: Lubiprostone 24 MCG Cap PO SCH (21:14)
[2020-05-21] MEDS: Mirtazapine 15 MG Tab PO SCH (21:14)
[2020-05-21] MEDS: DULoxetine 30 MG Cap PO SCH (21:14)
[2020-05-21] MEDS: Dextrose 5%-Lactated Ringers 1,000 ML IV SCH (22:23)
[2020-05-22] MEDS: oxyCODONE 5 MG Tab PO PRN ×4 (00:14→15:28)
[2020-05-22] MEDS: cloNIDine 0.1 MG Tab PO PRN ×2 (00:15→21:40)
[2020-05-22] MEDS: hydrOXYzine HCL 100 MG/2 ML SDV IM PRN ×2 (01:27→05:28)
[2020-05-22] MEDS ORDERED: Iopamidol 612 MG/ML 50 ML SDV PO STA (04:09)
[2020-05-22] MEDS: cefOXitin 2 GM in Sodium Chloride 0.9% 50 ML IV SCH ×3 (04:10→16:43)
[2020-05-22] MEDS: Dextrose 5%-Lactated Ringers 1,000 ML IV SCH (04:12)
[2020-05-22] MEDS: Heparin Sodium 5,000 Units/ML Vial SUBCUT SCH ×2 (04:13→16:43)
[2020-05-22] MEDS: Acetaminophen 500 MG Tab PO SCH ×3 (05:26→21:38)
[2020-05-22] MEDS ORDERED: Ondansetron 4 MG Tab.DIS PO PRN (06:54)
[2020-05-22] MEDS ORDERED: Dextrose 5%-Lactated Ringers 1,000 ML IV SCH (07:00)
[2020-05-22] MEDS: Amphetamine/Dextroamphetamine Salts 10 MG Tab PO SCH ×2 (07:58→12:34)
--- NOTE | 2020-05-22 08:58 | PN ---
DATE OF SERVICE: 05/22/2020 SUBJECTIVE: Jamee is postoperative day 1. Pain has been controlled with oral oxycodone and Vistaril IM. Oral intake 1725, output 800. Upper GI was normal. Vital signs have been stable. REVIEW OF SYSTEMS: Remainder of review of systems negative for any pertinent positives and negatives. OBJECTIVE: GENERAL: Jamee Vance is a pleasant 39-year-old female. She is alert and orientated. VITAL SIGNS: TPR is 95, 67, 16. Blood pressure 93/48. HEENT: Negative. NECK: Supple. HEART: Regular rate and rhythm. LUNGS: Clear. ABDOMEN: Dressings dry and intact. Abdominal binder is on. EXTREMITIES: Without peripheral edema. ASSESSMENT: Exploratory laparotomy with lysis of adhesions. 1. Reduction of small bowel volvulus. 2. Small-bowel resection. 3. Enterotomy for tube decompression of small bowel. 4. Placement of Interceed mesh. POSTOPERATIVE DIAGNOSES: Partial small-bowel obstruction intussusception of small bowel with lysis of adhesions small bowel, small-bowel volvulus, marked distortion of proximal small bowel and small bowel adhesions to anterior abdominal wall. Date of procedure: 05/21/2020. Surgeon: Hill Sagastume MD. PLAN: 1. Decrease IV to 100 mL per hour. 2. Atarax 50 mg orally q.4 hours p.r.n. pain. 3. Step 3 gastric bypass diet. 4. May shower. 5. Discontinue vistaril 100 mg IM. 6. Discontinue pulse oximetry and cardiac monitoring. 7. Will evaluate p.r.n. or in a.m. Britney Hand PA-C /[id number]
[2020-05-22] MEDS: Celecoxib 200 MG Cap PO SCH ×2 (09:20→21:36)
[2020-05-22] MEDS: Nicotine 21 MG/24 Hr Patch TRDERM SCH (09:21)
[2020-05-22] MEDS: Lubiprostone 24 MCG Cap PO SCH ×2 (09:21→21:36)
[2020-05-22] MEDS: Polyethylene Glycol 3350 Powder 17 GM Packet PO SCH (09:21)
[2020-05-22] MEDS: SCOPOLAMINE PATCH CHECK TOP SCH (09:22)
--- NOTE | 2020-05-22 09:35 | CR ---
UGI Limited HISTORY: Postbariatric surgery FINDINGS: Patient swallowed water-soluble contrast. Upright views of the abdomen show no evidence of extravasation or obstruction. There is postoperative intraperitoneal air. IMPRESSION: Status post abdominal surgery No extravasation or obstruction seen
[2020-05-22] MEDS: hydrOXYzine HCl 25 MG Tab PO PRN ×4 (10:55→23:22)
[2020-05-22] MEDS: Sodium Ferric Gluconate Cmplex 250 MG in Sodium Chloride 0.9% 100 ML IV SCH (12:35)
[2020-05-22] MEDS ORDERED: MVI, Adult with Vitamin K 10 ML, Thiamine 200 MG, Zinc/Copper/Manganese/Selenium 1 ML i... IV SCH ×4 (16:00)
[2020-05-22] MEDS ORDERED: Pantoprazole 40 MG Delayed-Release Granules 1 Packet PO SCH (16:30)
[2020-05-22] MEDS: HYDROmorphone 2 MG Tab PO PRN ×2 (19:30→23:22)
[2020-05-22] MEDS: DULoxetine 30 MG Cap PO SCH (21:37)
[2020-05-22] MEDS: Mirtazapine 15 MG Tab PO SCH (21:38)
[2020-05-23] MEDS: Heparin Sodium 5,000 Units/ML Vial SUBCUT SCH (03:20)
[2020-05-23] MEDS: HYDROmorphone 2 MG Tab PO PRN ×2 (03:22→09:12)
[2020-05-23] MEDS: hydrOXYzine HCl 25 MG Tab PO PRN ×2 (03:23→09:12)
[2020-05-23] MEDS: Acetaminophen 500 MG Tab PO SCH (05:44)
[2020-05-23] MEDS ORDERED: Cyanocobalamin (Vitamin B12) 1,000 MCG/ML SDV IM ONE (09:00)
[2020-05-23] MEDS: Lubiprostone 24 MCG Cap PO SCH (09:04)
[2020-05-23] MEDS: Celecoxib 200 MG Cap PO SCH (09:04)
[2020-05-23] MEDS: Amphetamine/Dextroamphetamine Salts 10 MG Tab PO SCH (09:04)
[2020-05-23] MEDS: Polyethylene Glycol 3350 Powder 17 GM Packet PO SCH (09:05)
[2020-05-23] MEDS: Nicotine 21 MG/24 Hr Patch TRDERM SCH (09:06)
[2020-05-23] MEDS: SCOPOLAMINE PATCH CHECK TOP SCH (09:06)
--- NOTE | 2020-05-23 10:25 | DISCH ---
ADMISSION DIAGNOSES: Partial small bowel obstruction, status post Silvestre-en-Y gastric bypass surgery, unspecified surgical malabsorption, B12 deficiency, vitamin D deficiency, fibromyalgia, generalized anxiety disorder, depression, anxiety, history of chemical dependence, and attention deficit disorder. DISCHARGE DIAGNOSES: Exploratory laparotomy with lysis of adhesions. 1. Reduction of small bowel volvulus. 2. Small bowel resection. 3. Enterotomy for tube decompression of small bowel. 4. Placement of Interceed mesh. Iron deficiency anemia, low ferritin. POSTOPERATIVE DIAGNOSES: 1. Partial small bowel obstruction. 2. Intussusception of small bowel with lysis of adhesions of small bowel. 3. Small bowel volvulus. 4. Marked distortion of proximal small bowel. 5. Small bowel adhesions to anterior abdominal wall. Date of procedure: 05/21/2020. Surgeon: Hill Sagastume MD. HISTORY: Jamee Vance is a pleasant 39-year-old female with abdominal pain. After preoperative evaluation and discussion of possible risks and complications, the patient wishes to proceed with surgical procedure. HOSPITAL COURSE: Jamee had her surgery on 05/21/2020. She also received an iron infusion for low ferritin. Postop day 1, she was changed to oral pain medication and started on a step 3 gastric bypass diet after her upper GI was normal. On postop day 2, pain medication was changed from oxycodone to Dilaudid, which had better pain control. She had no nausea or vomiting. Her oral intake was adequate at 1160. Urine output was independent and she had 3 bowel movements. On postop day 2, Jamee was able to be discharged to home without any complications. PHYSICAL EXAMINATION: GENERAL: Jamee Vance is a pleasant 39-year-old female. VITAL SIGNS: Height 5 feet 6 inches, weight is 132 pounds, BMI is 21. TPR is 96.3, 79, 16, blood pressure 104/56. HEENT: Negative. NECK: Supple. HEART: Regular rate and rhythm. LUNGS: Clear. ABDOMEN: Aquacel dressing is on. It is clean and dry. EXTREMITIES: Without peripheral edema. DISPOSITION: Discharged to home. CONDITION: Stable and improving. FOLLOWUP APPOINTMENT: With Britney Hand PA-C, on 05/31/2020 at 10 a.m. HOME MEDICATIONS: 1. Celebrex 200 mg oral twice daily, #28. 2. Dilaudid 2 mg every 6 hours p.r.n. pain, #28. 3. Acetaminophen 1000 mg every 8 hours p.r.n. pain. MEDICATIONS TO RESUME TAKING: Vitamin D3 one daily, B12 1000 mcg IM every 30 days, Flexeril 10 mg oral 3 times a day p.r.n. muscle spasms, Cymbalta 120 mg oral at bedtime, Adderall 20 mg oral twice daily, Senna Plus 2 tabs oral daily, Amitiza 24 mcg oral twice daily, mirtazapine 15 mg oral at bedtime, Protonix 40 mg oral daily, clonidine 0.1 mg oral 4 times a day p.r.n. anxiety, MiraLAX 34 g oral twice daily p.r.n. constipation. DIET: Step 3 gastric bypass diet. ACTIVITY: No lifting greater than 10 pounds for 6 weeks. OTHER ACTIVITY: Walk 6 times daily inside your home. Driving: Do not drive for 1 week and while on pain medication. Shower/bathing: May shower. DISCHARGE INSTRUCTIONS: Notify provider if any fever, increased pain, swelling, redness, drainage, nausea, or vomiting. Wound incision care: Keep site clean and dry. Remove Aquacel dressing on 05/26/2020. Wear abdominal binder for 6 weeks and then as tolerated. SPECIAL INSTRUCTION: Use incentive spirometer 10 times every hour while awake for 1 week. /[id number]
[2020-05-23 10:39] VITALS: BP 100/56; PULSE 90
--- NOTE | 2020-05-27 17:33 | OR ---
DATE OF PROCEDURE: 05/21/2020 SURGEON: Hill Sagastume MD PREOPERATIVE DIAGNOSIS: Partial small bowel obstruction associated with some intussusception of small bowel. POSTOPERATIVE DIAGNOSES: 1. Partial small bowel obstruction associated with intussusception of segment of small bowel. 2. Small bowel volvulus. 3. Marked distention of proximal small bowel. 4. Small bowel adhesions to the anterior abdominal wall. OPERATIVE PROCEDURES: Exploratory laparotomy with lysis of adhesions and: 1. Reduction of small bowel volvulus and closure of internal hernia (28873). 2. Small bowel resection (27334). 3. Enterotomy for tube decompression of proximal small bowel (03392). 4. Placement of Interceed mesh to limit recurrent adhesion formation between pelvic and abdominal wall and underlying viscera (45008). ANESTHESIA: General. DIAMOND GRADER: Britney Hand PA-C; and MARIAN Norman. INDICATIONS FOR PROCEDURE: The patient presents for release of partial small bowel obstruction. Workup has included CT scan which showed an area of intussusception of small bowel with some significant dilation at that level. Plan is to proceed with exploratory laparotomy, release of any adhesions, and small bowel resection as indicated, and other procedures as indicated based on operative findings. Potential risks including bleeding, infection, leaks from various GI tract closures, problems with persistent or recurrent symptoms over time were all reviewed, and the patient wishes to proceed. DETAILS OF PROCEDURE: The patient was taken to the operating room and placed in a supine position. After general endotracheal anesthesia was induced, a Pimentel catheter was inserted, and the abdomen prepped and draped. A midline incision from what would be the level of the umbilicus upward towards the xiphoid handsbreadth was made and carried down through the skin and subcutaneous tissue and into the peritoneal cavity. Upon entering the peritoneal cavity, similar adhesions between the anterior abdominal wall and the small bowel were taken down. Small area was deserosalized down to the small bowel which was closed with seromuscular stitch of 3-0 Vicryl stitch. Examination at this point showed the more proximal bowel to be encased in quite a bit of adhesions but no areas of dilation, and this area was not further resected. There was a loop of small bowel in the left mid abdomen which might be dilated. The point of intussusception was repaired in this area. This also was involved in an area of volvulus formation underneath the ileorectal anastomosis done previously. This was reduced and the underlying mesenteric defect closed with some 2-0 silk stitch. Following this, then the distended portion of the small bowel was divided proximally and distally, the segment resected with MIGUELIOT diana as was the underlying mesentery. Proximal bowel was decompressed with enterotomy with [place] sump tube being placed into that area to decompress distended proximal small bowel. [id number] enteroenterostomy was accomplished with internal firing of the Endo-MIGUELITO 60 mm stapler, followed by 30 mm internal firing. The common opening was then closed transversely with a MIGUELITO stapler and the angles anastomosed and reinforced with some 3-0 Vicryl stitch and the mesentery with a 2-0 silk stitch. At this point, no further problems were noted. Abdomen was irrigated with antibiotic-containing saline solution. Bilateral transversus abdominis plane blocks were placed and the fascia was anesthetized with 1% lidocaine mixed with Marcaine. Interceed mesh was then placed underneath the incision from there down towards the pelvis to limit recurrent adhesion formation and the midline fascia was then approximated with #2 Vicryl stitch, subcutaneous tissue with 3-0 and 4-0 Vicryl stitch deep and skin with diana. Dressing was applied. The patient was taken to the recovery room in satisfactory condition. There were no evident complications. Physician teaching assistant, Britney Hand, played an essential role in assisting in this case helping to position the patient, retract structures as needed, as well as suturing and cutting sutures when indicated. Her presence improved patient safety and decreased operative time. Hill Sagastume MD /[id number]
== END 2020-05-23 10:54 | disposition home or self-care (01) | DRG 329 ==
LOC: JP.SDS 05-21 05:23 → EDSTATUS 05-21 08:15 → JP.SDSSCHI 05-21 08:50 → JP.MS 05-21 08:51
PROVIDERS: ADMIT Surgery; ATTEND Surgery
PROC: 0DS80ZZ Reposition Small Intestine, Open Approach (ICD-10-PCS; principal; 2020-05-21)
PROC: 0DB80ZZ Excision of Small Intestine, Open Approach (ICD-10-PCS; 2020-05-21)
PROC: 3E0M05Z Introduction of Adhesion Barrier into Peritoneal Cavity, Open Approach (ICD-10-PCS; 2020-05-21)
DX: K95.89 Other complications of other bariatric procedure (principal); K56.2 Volvulus; K56.51 Intestinal adhesions [bands], with partial obstruction; K91.2 Postsurgical malabsorption, not elsewhere classified; K56.1 Intussusception; E55.9 Vitamin D deficiency, unspecified; E53.8 Deficiency of other specified B group vitamins; M79.7 Fibromyalgia; F41.1 Generalized anxiety disorder; F32.9 Major depressive disorder, single episode, unspecified; F98.8 Other specified behavioral and emotional disorders with onset usually occurring in childhood and adolescence; D50.9 Iron deficiency anemia, unspecified; K21.9 Gastro-esophageal reflux disease without esophagitis; M77.8 Other enthesopathies, not elsewhere classified; K59.00 Constipation, unspecified; Z88.0 Allergy status to penicillin; Z79.899 Other long term (current) drug therapy
CPT/HCPCS: 74240; 74240-26; 88307; 94640; A9270-GY; C9113; J0171; J0330; J0694; J1100; J1170; J1200; J1644; J2185; J2405; J2704; J2710; J2795; J2916; J3010; J3410; J3411; J3420; J3490; J7121; J7620-GY; Q9967

== ENCOUNTER 2020-05-31 11:51 | Inpatient (IN) | payer MEDICAID ==
[2020-05-31] MEDS ORDERED: Acetaminophen 650 MG Supp RECTAL PRN (12:10)
[2020-05-31] MEDS ORDERED: Lactated Ringers 1,000 ML IV ONE (12:15)
[2020-05-31] MEDS ORDERED: HYDROmorphone/Normal Saline 15 MG/30 ML PCA IV PRN (12:15)
[2020-05-31] MEDS ORDERED: Naloxone 0.4 MG/ML SDV IV PRN (13:00)
[2020-05-31] MEDS: Pantoprazole 40 MG Vial IV SCH ×2 (13:21→20:55)
[2020-05-31 13:41] LABS: CORONAVIRUS COVID-19 NAA NEGATIVE (NEGATIVE)
[2020-05-31] MEDS ORDERED: Cyclobenzaprine 10 MG Tab PO PRN (13:45)
--- NOTE | 2020-05-31 14:16 | PCM.HP.2 ---
H&P History of Present Illness - General Date of Service: 05/31/20 Admit Problem/Dx: Admission Diagnosis/Problem Admission Diagnosis/Problem Ileus following gastrointestinal surgery Source of Information: Patient History Limitations: Reports: No Limitations - History of Present Illness Initial Comments - Free Text/Narative: Jamee had an Exploratory Laparotomy with lysis of adhesions, reduction of small bowel volvulus small bowel resection, enterotomy for tube decompression of small bowel and placement of interceed mesh on 05/21/2020. Follow up for her first post op appointment she stated she felt good until 2 days ago. Abdominal pain increased, felt constipated and bloated associated with nausea and vomited once. states that she has been able to drink fluids but has not been eating. Took extra doses of Amitiza and Miralax and only had one small liquid BM. Also noti nickolas that she has been unable to urinate the past 2 days. Feels like she has to go but then can't. Reports that twice she was incontinent. - Related Data Allergies/Adverse Reactions: Allergies Allergy/AdvReac Type Severity Reaction Status Date / Time morphine Allergy Unknown Itching Verified 05/31/20 13:00 Penicillins Allergy Unknown Hives Verified 05/31/20 13:00 fentanyl Allergy Itching Verified 05/31/20 13:00 Home Medications: Home Meds DULoxetine [Cymbalta] 120 mg PO BEDTIME 08/24/14 [History] Docusate Sodium/Sennosides [Senna Plus] 2 tab PO DAILY #100 tablet 09/10/14 [Rx] polyethylene glycoL 3350 [Miralax] 34 gm PO BID PRN 12/19/14 [History] Cholecalciferol (Vitamin D3) [Vitamin D3] 1,600 unit PO DAILY 02/26/15 [History] Mirtazapine 15 mg PO BEDTIME 02/26/15 [History] Cyclobenzaprine [Flexeril] 10 mg PO TID PRN #36 tablet 05/09/15 [Rx] Lubiprostone [Amitiza] 24 mcg PO BID #60 cap 01/01/17 [Rx] Ascorbic Acid [Vitamin C] 250 mg PO DAILY 06/12/19 [History] Cyanocobalamin (Vitamin B-12) [Cyanocobalamin Injection] 1,000 mcg IM Q30D 06/12/19 [History] Dextroamphetamine/Amphetamine [Adderall 20 mg Tablet] 20 mg PO BID 06/12/19 [History] Pantoprazole [ProTONIX] 40 mg PO DAILY 06/12/19 [History] cloNIDine HCL [Clonidine HCl] 0.1 mg PO QID PRN 06/12/19 [History] Acetaminophen [Tylenol Extra Strength] 1,000 mg PO Q6H PRN #1 tab 06/18/19 [Rx] Acetaminophen [Tylenol Extra Strength] 1,000 mg PO Q8H tablet 05/23/20 [Rx] Celecoxib [CeleBREX] 200 mg PO BID #28 cap 05/23/20 [Rx] HYDROmorphone [Dilaudid] 2 mg PO Q6H PRN #28 tablet 05/23/20 [Rx] Past Medical History HEENT History: Reports: Impaired Vision Respiratory History: Reports: Pneumothorax Gastrointestinal History: Reports: Bowel Obstruction, Cholelithiasis, Chronic Constipation, Chronic Diarrhea, GERD, Other (See Below) Other Gastrointestinal History: episosdes weekly since 12/25. 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: Endometriosis, Musculoskeletal History: Reports: Fracture Psychiatric History: Reports: ADHD, Addiction, Anxiety, Depression, Panic Attack, Psych Hospitalization(s), PTSD, Suicide Attempt Hematologic History: Reports: Anemia, B12 Deficiency - Infectious Disease History Infectious Disease History: Reports: Chicken Pox - Past Surgical History HEENT Surgical History: Reports: Adenoidectomy, Oral Surgery, Tonsillectomy Other HEENT Surgeries/Procedures: adnoidectomy Respiratory Surgical History: Reports: None GI Surgical History: Reports: Appendectomy, Bariatric Procedure, Cholecystectomy, Colonoscopy, EGD, Hernia, Abdominal, Hernia Repair/Other, Lysis of Adhesions Female Surgical History: Reports: Section, Hysterectomy Musculoskeletal Surgical History: Reports: Shoulder Surgery, Other (See Below) Other Musculoskeletal Surgeries/Procedures:: CLAVICLE SURGERY Social & Family History - Family History Family Medical History: Unobtainable - Caffeine Use Caffeine Use: Reports: None H&P Review of Systems - Review of Systems: Review Of Systems: See Below General: Reports: Weakness, Fatigue, Decreased Appetite HEENT: Reports: No Symptoms Pulmonary: Reports: No Symptoms Cardiovascular: Reports: No Symptoms Gastrointestinal: Reports: Abdominal Pain, Anorexia, Constipation, Decreased Appetite, Distension, Nausea, Vomiting Genitourinary: Reports: Retention Musculoskeletal: Reports: No Symptoms Skin: Reports: No Symptoms Psychiatric: Reports: No Symptoms Neurological: Reports: No Symptoms Hematologic/Lymphatic: Reports: No Symptoms Immunologic: Reports: No Symptoms Exam - Exam Exam: See Below - Vital Signs Vital Signs: Last Vital Signs Temp 96 F L 05/31/20 12:37 Pulse 70 05/31/20 12:37 Resp 12 05/31/20 12:37 BP 101/42 L 05/31/20 12:37 Pulse Ox 100 05/31/20 12:37 Weight: 138 lb - Exam Quality Assessment: DVT Prophylaxis General: Alert, Oriented, Moderate Distress HEENT: PERRLA, Conjunctiva Clear Neck: Supple, Full Range of Motion Lungs: Clear to Auscultation, Normal Respiratory Effort Cardiovascular: Regular Rate, Regular Rhythm GI/Abdominal Exam: Distended, Guarding, Tender (in all 4 quadrants. Midline Incision healing well. Clark were removed and steri strips applied. ) (Female) Exam: Deferred Rectal (Female) Exam: Deferred Back Exam: Normal Inspection, Full Range of Motion Extremities: Normal Inspection, Normal Range of Motion Skin: Warm, Dry, Intact Neurological: Cranial Nerves Intact, Reflexes Equal Bilateral Neuro Extensive - Mental Status: Alert, Oriented x3, Normal Mood/Affect Neuro Extensive - Motor, Sensory, Reflexes: CN II-XII Intact, Normal Gait Psychiatric: Alert, Normal Affect, Normal Mood - Patient Data Lab Results Last 24 hrs: Laboratory Results - last 24 hr 05/31/20 05/31/20 05/31/20 Range/Units 12:31 13:38 13:38 WBC 14.5 H (4.5-11.0) K/uL RBC 3.73 (3.30-5.50) M/uL Hgb 12.0 D (12.0-15.0) g/dL Hct 35.7 L (36.0-48.0) % MCV 96 (80-98) fL MCH 32 H (27-31) pg MCHC 34 (32-36) % Plt Count 377 (150-400) K/uL Sodium 138 L (140-148) mmol/L Potassium 4.1 (3.6-5.2) mmol/L Chloride 103 (100-108) mmol/L Carbon Dioxide 23 (21-32) mmol/L Anion Gap 16.1 H (5.0-14.0) mmol/L BUN 15 (7-18) mg/dL Creatinine 0.6 (0.6-1.0) mg/dL Est Cr Clr Drug Dosing 117.84 mL/min Estimated GFR (MDRD) > 60 (>60) Glucose 92 (74-106) mg/dL Calcium 8.9 (8.5-10.1) mg/dL Phosphorus 3.1 (2.5-4.9) mg/dL Magnesium 2.1 (1.8-2.4) mg/dL Total Bilirubin 0.5 D (0.2-1.0) mg/dL AST 11 L D (15-37) U/L ALT 17 (12-78) U/L Alkaline Phosphatase 89 (46-116) U/L Total Protein 6.2 L (6.4-8.2) g/dL Albumin 2.7 L (3.4-5.0) g/dL Globulin 3.5 (2.3-3.5) g/dL Albumin/Globulin Ratio 0.8 L (1.2-2.2) Influenza Type A RNA Negative (NEGATIVE) RSV RNA (INAAT) Negative (NEGATIVE) Influenza Type B RNA Negative (NEGATIVE) SARS-CoV-2 RNA (GRISELDA) Negative (NEGATIVE) Result Diagrams: 05/31/20 13:38 05/31/20 13:38 Sepsis Event Note - Evaluation Sepsis Screening Result: No Definite Risk - Focused Exam Vital Signs: Vital Signs Temp Pulse Resp BP Pulse Ox 05/31/20 12:37 96 F L 70 12 101/42 L 100 - Problem List (1) Ileus following gastrointestinal surgery SNOMED Code(s): 928779660 ICD Code: K91.89 - OTH POSTPROCEDURAL COMPLICATIONS AND DISORDERS OF DGSTV SYS; K56.7 - ILEUS, UNSPECIFIED Status: Acute Current Visit: Yes Problem List Initiated/Reviewed/Updated: Yes Orders Last 24hrs: Assessment: Post Op Ileus Dehydration Urinary Retention Plan: Admit to Inpatient Status Active Orders 24 hr Category Date Time Status Admission Status [Patient Status] [ADT] Routine ADT 05/31/20 12:20 Active Antiembolic Devices [RC] .Routine Care 05/31/20 12:38 Active Up ad Nalini [RC] ASDIRECTED Care 05/31/20 12:37 Active Urinary Catheter Assessment [RC] ASDIRECTED Care 05/31/20 12:36 Active Urinary Catheter Insertion [Insert Urinary Catheter] [ Care 05/31/20 12:45 Ordered OM.PC] Q24H Vital Signs [RC] Q6H Care 05/31/20 12:36 Active Clear Liquid Diet [DIET] Diet 05/31/20 Dinner Active Abdomen 2V AP Flat Upright [CR] Routine Exams 05/31/20 12:33 Taken CTA Abd Pelv w Cont [CT] Routine Exams 06/01/20 04:00 Ordered CBC W/O DIFF,HEMOGRAM [HEME] Timed Lab 06/01/20 04:00 Ordered COMPREHENSIVE METABOLIC PN,CMP [CHEM] Timed Lab 06/01/20 04:00 Ordered MAGNESIUM [CHEM] Timed Lab 06/01/20 04:00 Ordered PHOSPHORUS [CHEM] Timed Lab 06/01/20 04:00 Ordered URINALYSIS W/MICROSCOPIC [UA W/MICROSCOPIC] [URIN] Lab 05/31/20 12:31 Ordered Routine Acetaminophen [TylenoL] Med 05/31/20 12:10 Active 650 mg PO Q4H PRN Acetaminophen [Tylenol] Med 05/31/20 12:10 Active 650 mg RECTAL Q4H PRN Amphetamine/Dextroamphetamine [Adderall] Med 06/01/20 08:00 Active 20 mg PO BID@0800,1200 Cyclobenzaprine [Flexeril] Med 05/31/20 13:45 Active 10 mg PO TID PRN DULoxetine [Cymbalta] Med 05/31/20 21:00 Active 120 mg PO BEDTIME Dextrose 5%-Lactated Ringers 1,000 ml Med 05/31/20 14:14 Active IV ASDIRECTED Docusate Sodium/Sennosides [Senna Plus] Med 06/01/20 09:00 Active 2 tab PO DAILY HYDROmorphone/Normal Saline [Dilaudid FRONT DESK TEAM MEMBER 15 MG in NS Med 05/31/20 12:15 Active 30 ML] 0 mg IV ASDIRECTED PRN Lactated Ringers [Ringers, Lactated] 1,000 ml Med 05/31/20 12:15 Active IV ONETIME Lubiprostone [Amitiza] Med 05/31/20 21:00 Active 24 mcg PO BID MVI, Adult with Vitamin K [Infuvite Adult] 10 ml Med 05/31/20 16:00 Active Thiamine [Vitamin B-1] 200 mg Zinc/Copper/Manganese/Selenium [Tralement] 1 ml Lactated Ringers [Ringers, Lactated] 1,000 ml IV ONETIME Mirtazapine [Remeron] Med 05/31/20 21:00 Active 15 mg PO BEDTIME Naloxone [Narcan] Med 05/31/20 13:00 Active 0.1 mg IV ASDIRECTED PRN Ondansetron [Zofran] Med 05/31/20 12:13 Active 4 mg IVPUSH Q4H PRN Pantoprazole [ProTONIX IV] Med 05/31/20 12:15 Active 40 mg IV BID cloNIDine [Catapres] Med 05/31/20 13:45 Active 0.1 mg PO QID PRN polyethylene glycoL 3350 [MiraLAX] Med 05/31/20 13:45 Active 34 gm PO BID PRN SCD [Sequential Compression Device] [OM.PC] Routine Oth 05/31/20 12:38 Ordered Code Status [Resuscitation Status] Routine Resus Stat 05/31/20 12:53 Ordered Medication Orders Acetaminophen (Tylenol) 650 mg PO Q4H PRN PRN Reason: LESSER PAIN/FEVER Acetaminophen (Tylenol) 650 mg RECTAL Q4H PRN PRN Reason: LESSER PAIN/FEVER Amphetamine/Dextroamphetamine (Adderall) 20 mg PO BID@0800,1200 EDELMIRA Clonidine HCl (Catapres) 0.1 mg PO QID PRN PRN Reason: Anxiety Cyclobenzaprine HCl (Flexeril) 10 mg PO TID PRN PRN Reason: muscle spasms Duloxetine HCl (Cymbalta) 120 mg PO BEDTIME EDELMIRA Hydromorphone HCl (Dilaudid Solar Resource Assessor 15 Mg In Ns 30 Ml) 0 mg IV ASDIRECTED PRN; Protocol PRN Reason: FRONT DESK TEAM MEMBER PAIN CONTROL Last Admin: 05/31/20 13:29 Dose: 15 mg Documented by: CHADD Lactated Ringer's (Ringers, Lactated) 1,000 mls @ 500 mls/hr IV ONETIME ONE Stop: 05/31/20 14:14 Last Admin: 05/31/20 13:19 Dose: 500 mls/hr Documented by: CHADD Dextrose/Lactated Ringer's (Dextrose 5%-Lactated Ringers) 1,000 mls @ 150 mls/hr IV ASDIRECTED EDELMIRA Multivitamins/Minerals 10 ml/Thiamine HCl 200 mg/ Zinc 1 ml / Lactated Ringer's 1,013 mls @ 500 mls/hr IV ONETIME ONE Stop: 05/31/20 18:01 Lubiprostone (Amitiza) 24 mcg PO BID EDELMIRA Mirtazapine (Remeron) 15 mg PO BEDTIME EDELMIRA Naloxone HCl (Narcan) 0.1 mg IV ASDIRECTED PRN PRN Reason: decreased respiratory rate Ondansetron HCl (Zofran) 4 mg IVPUSH Q4H PRN PRN Reason: Nausea Pantoprazole Sodium (Protonix Iv) 40 mg IV BID EDELMIRA Last Admin: 05/31/20 13:21 Dose: 40 mg Documented by: CHADD Polyethylene Glycol (Miralax) 34 gm PO BID PRN PRN Reason: Constipation Senna/Docusate Sodium (Senna Plus) 2 tab PO DAILY [facility] Plan: To return home after discharge from hospital. Plan of admission 3 nights and 4 days. Britney Martinez 05/31/2020 - Mortality Measure Prognosis:: Good
--- NOTE | 2020-05-31 14:45 | CR ---
Abdomen 2V AP Flat Upright CLINICAL HISTORY: Postop ileus FINDINGS: There are scattered dilated loops of colon in the mid abdomen and left upper quadrant. There are essentially nondilated loops of small bowel in the midabdomen. No free air is identified. Patient has had extensive abdominal surgery. IMPRESSION: Dilated bowel loops appear to be:. The this could be consistent with the history of postop ileus. Continued follow-up recommended.
[2020-05-31] MEDS: Ciprofloxacin in D5W 400 MG in Premix Bag 1 BAG IV SCH ×2 (14:56)
--- NOTE | 2020-05-31 15:10 | ANES ---
DATE OF SERVICE: 05/31/2020 TIME: 1300. I was called to the ICU to start IV for Ms. Vance. After multiple times, I did get a very small 20-gauge IV into her right arm. At that time, we could not draw any blood from it and I needed some blood work done. It was discussed at length with the patient myself that we would just go ahead and do an external jugular on the right side. I did use the micro- introducer kit after chlorhexidine prep. I did put the needle into the right external jugular. I aspirated blood for the pharmacy laboratory technician, and using the Seldinger technique, I threaded the IV catheter over wire. It was then secured with Tegaderm and tape. She tolerated the procedure very nicely. Rajeev Quigley CRNA /[id number]
[2020-05-31] MEDS: diphenhydrAMINE 25 MG Cap PO PRN ×2 (15:22→23:40)
[2020-05-31] MEDS: Nicotine 14 MG/24 Hr Patch TRDERM SCH (15:43)
[2020-05-31] MEDS ORDERED: MVI, Adult with Vitamin K 10 ML, Thiamine 200 MG, Zinc/Copper/Manganese/Selenium 1 ML i... IV ONE ×4 (16:00)
[2020-05-31] MEDS: Dextrose 5%-Lactated Ringers 1,000 ML IV SCH (18:53)
[2020-05-31] MEDS: HYDROmorphone 2 MG Tab PO PRN ×2 (19:31→23:40)
[2020-05-31] MEDS: Lubiprostone 24 MCG Cap PO SCH (20:55)
[2020-05-31] MEDS: DULoxetine 30 MG Cap PO SCH (20:55)
[2020-05-31] MEDS: cloNIDine 0.1 MG Tab PO PRN (20:55)
[2020-05-31] MEDS: Mirtazapine 15 MG Tab PO SCH (20:56)
[2020-05-31] MEDS: Polyethylene Glycol 3350 Powder 17 GM Packet PO PRN (20:58)
[2020-05-31] MEDS ORDERED: DULOXETINE 120 MG PO SCH (21:00)
[2020-05-31] MEDS ORDERED: Non-Formulary Medication 1 Each (Mirtazapine [Mirtazapine] 15 MG) PO SCH (21:00)
[2020-05-31] MEDS: Ondansetron 4 MG/2 ML SDV IVPUSH PRN (22:08)
[2020-05-31] MEDS: Acetaminophen 325 MG Tab PO PRN (23:40)
[2020-06-01] MEDS: Dextrose 5%-Lactated Ringers 1,000 ML IV SCH ×2 (01:40→11:31)
[2020-06-01] MEDS: Ciprofloxacin in D5W 400 MG in Premix Bag 1 BAG IV SCH ×4 (03:36→14:51)
[2020-06-01] MEDS: diphenhydrAMINE 25 MG Cap PO PRN ×5 (03:36→22:44)
[2020-06-01] MEDS: Acetaminophen 325 MG Tab PO PRN ×5 (03:36→22:02)
[2020-06-01] MEDS: HYDROmorphone 2 MG Tab PO PRN ×5 (03:37→22:44)
[2020-06-01] MEDS ORDERED: Sodium Chloride 0.9% 10 ML Syringe FLUSH ONE (04:20)
[2020-06-01] MEDS ORDERED: Iopamidol 612 MG/ML 500 ML Multipack Bottle IV ONE (04:20)
--- NOTE | 2020-06-01 04:50 | CRLCT ---
INDICATION: Postoperative ileus, recent small-bowel surgery TECHNIQUE: Axial images were obtained from the diaphragm to the pubic symphysis. Reformats were obtained in the coronal and sagittal plane. IV Contrast: 50 cc Isovue-300 Oral Contrast: Yes COMPARISON: Abdomen and pelvis CT 05/08/2020 FINDINGS: Lower chest: Minimal discoid atelectasis. Liver: Unremarkable. Normal in size and attenuation. No masses. Gallbladder and bile ducts: Status post cholecystectomy. Spleen: Unremarkable. Normal in size without mass. Pancreas: Unremarkable. No mass or inflammation. Adrenal glands: Unremarkable. No nodules. Kidneys: Unremarkable. No masses, stones, or hydronephrosis. Vasculature: No abdominal aortic aneurysm. Portal vein and superior mesenteric vein patent. Superior mesenteric artery patent. GI tract: Moderate amount of ascites. Status post gastric bypass as well as partial colectomy and small bowel resection. Administered oral contrast distal proximal within the dilated proximal small bowel loops. Several dilated small bowel loops are present within the upper abdomen with decompressed distal small bowel with some mild wall thickening noted. Pneumoperitoneum is present consistent with recent surgery. Pelvis: Pimentel catheter in the bladder. Status posthysterectomy. Bones: Unremarkable for age. IMPRESSION: 1. Status post gastric bypass, small-bowel resection as well as partial colectomy with dilated loops of small bowel in the upper abdomen and decompressed distal small bowel. Appearance is most consistent with a small-bowel obstruction, likely 1 of the small bowel anastomosis in the lower abdomen/upper pelvis. Oral contrast is still present in the proximal small bowel and has not reached this point. 2. Moderate amount of ascites as well as pneumoperitoneum consistent with recent surgery. 3. Other incidental findings as detailed above. Results called to the hospital team at 0444 on 06/01/[address] Please note that all CT scans at this facility use dose modulation, iterative reconstruction, and/or weight-based dosing when appropriate to reduce radiation dose to as low as reasonably achievable. Dictated by Qamar Gross MD @ Jun 01 2020 4:33AM Signed by Dr. Qamar Gross @ Jun 01 2020 4:49AM
[2020-06-01] MEDS: Amphetamine/Dextroamphetamine Salts 10 MG Tab PO SCH ×2 (08:00→11:55)
[2020-06-01] MEDS: Nicotine 14 MG/24 Hr Patch TRDERM SCH (08:21)
[2020-06-01] MEDS: Lubiprostone 24 MCG Cap PO SCH ×2 (08:21→22:00)
[2020-06-01] MEDS: Pantoprazole 40 MG Vial IV SCH ×2 (08:22→21:59)
[2020-06-01] MEDS: Ondansetron 4 MG/2 ML SDV IVPUSH PRN ×3 (08:35→23:23)
[2020-06-01] MEDS: cloNIDine 0.1 MG Tab PO PRN ×2 (11:28→22:44)
[2020-06-01] MEDS: Polyethylene Glycol 3350 Powder 17 GM Packet PO PRN (20:19)
[2020-06-01] MEDS: DULoxetine 30 MG Cap PO SCH (22:00)
[2020-06-01] MEDS: Mirtazapine 15 MG Tab PO SCH (22:00)
[2020-06-02] MEDS: diphenhydrAMINE 25 MG Cap PO PRN ×5 (03:58→21:34)
[2020-06-02] MEDS: HYDROmorphone 2 MG Tab PO PRN ×5 (03:58→21:35)
[2020-06-02] MEDS: Acetaminophen 325 MG Tab PO PRN ×5 (03:58→21:36)
[2020-06-02] MEDS: Ciprofloxacin in D5W 400 MG in Premix Bag 1 BAG IV SCH ×4 (03:59→14:53)
[2020-06-02] MEDS ORDERED: Sodium Chloride 0.9% 10 ML Syringe IV PRN (07:21)
[2020-06-02] MEDS: Nicotine 14 MG/24 Hr Patch TRDERM SCH (08:22)
[2020-06-02] MEDS: Lubiprostone 24 MCG Cap PO SCH ×2 (08:22→21:36)
[2020-06-02] MEDS: Amphetamine/Dextroamphetamine Salts 10 MG Tab PO SCH ×3 (08:22→11:29)
[2020-06-02] MEDS: Pantoprazole 40 MG Vial IV SCH ×2 (08:23→21:36)
[2020-06-02] MEDS ORDERED: SELENIUM IV ONE (08:30)
[2020-06-02] MEDS ORDERED: LACTATED RINGERS IV ONE (08:30)
[2020-06-02] MEDS ORDERED: ZINC IV ONE (08:30)
[2020-06-02] MEDS ORDERED: COPPER IV ONE (08:30)
[2020-06-02] MEDS ORDERED: MANGANESE IV ONE (08:30)
[2020-06-02] MEDS: Ondansetron 4 MG/2 ML SDV IVPUSH PRN (11:26)
[2020-06-02] MEDS: DULoxetine 30 MG Cap PO SCH (21:36)
[2020-06-02] MEDS: Mirtazapine 15 MG Tab PO SCH (21:37)
[2020-06-03] MEDS: Ondansetron 4 MG/2 ML SDV IVPUSH PRN ×2 (00:36→20:05)
[2020-06-03] MEDS: Ciprofloxacin in D5W 400 MG in Premix Bag 1 BAG IV SCH ×2 (03:25)
[2020-06-03] MEDS: Acetaminophen 325 MG Tab PO PRN (03:25)
[2020-06-03] MEDS: HYDROmorphone 2 MG Tab PO PRN (03:25)
[2020-06-03] MEDS: diphenhydrAMINE 25 MG Cap PO PRN (03:26)
--- NOTE | 2020-06-03 07:16 | PN ---
DATE OF SERVICE: 06/01/2020 The patient has been afebrile with stable vital signs. CT scan was suggestive of either slow transit with some element of ileus versus a partial small bowel obstruction. We will obtain an abdominal x-ray this morning again to see how things are going, then repeat that tomorrow. It is of interest that the upper GI following the most recent surgery showed no evidence of any obstruction in the upper abdomen with free flow of contrast into the distal small bowel, so this may end up being more of a motility issue or something that resolves nonoperatively. She looks comfortable. IV access is somewhat of an issue. She has an external jugular IV and we will have Anesthesia look at that to see if there is something that can be improved on in that regard. Otherwise, at some point, she may need to have a central line placed. Hill Sagastume MD /[id number]
[2020-06-03] MEDS ORDERED: Lidocaine 1% with EPINEPHrine 1:100,000 50 ML MDV ONE (07:44)
[2020-06-03] MEDS ORDERED: Bupivacaine 0.5% 50 ML MDV ONE (07:44)
[2020-06-03] MEDS ORDERED: Meropenem 500 MG SDV ONE (07:45)
[2020-06-03] MEDS: Amphetamine/Dextroamphetamine Salts 10 MG Tab PO SCH ×2 (07:58→12:08)
[2020-06-03] MEDS ORDERED: Naloxone 0.4 MG/ML SDV IV PRN (08:00)
[2020-06-03] MEDS: Lubiprostone 24 MCG Cap PO SCH ×2 (08:21→20:14)
[2020-06-03] MEDS ORDERED: fentaNYL 250 MCG/5 ML SDV ONE ×2 (08:38→09:44)
[2020-06-03] MEDS ORDERED: Ondansetron 4 MG/2 ML SDV ONE (08:39)
[2020-06-03] MEDS ORDERED: Neostigmine Methylsulfate 1 MG/ML 5 ML Syringe ONE (08:39)
[2020-06-03] MEDS ORDERED: Glycopyrrolate 0.2 MG/ML 5 ML MDV ONE (08:39)
[2020-06-03] MEDS ORDERED: Dexamethasone 4 MG/ML SDV ONE (08:39)
[2020-06-03] MEDS ORDERED: Succinylcholine 200 MG/10 ML MDV ONE (08:39)
[2020-06-03] MEDS ORDERED: Propofol 200 MG/20 ML SDV ONE (08:39)
[2020-06-03] MEDS ORDERED: Rocuronium 50 MG/5 ML Vial ONE (08:39)
[2020-06-03] MEDS: Nicotine 14 MG/24 Hr Patch TRDERM SCH (08:49)
[2020-06-03] MEDS ORDERED: Ketamine 500 MG/5 ML MDV IV SCH (09:00)
[2020-06-03] MEDS ORDERED: Magnesium Sulfate 2.8 GM in Sodium Chloride 0.9% 250 ML IV ONE (09:00)
[2020-06-03] MEDS ORDERED: Magnesium Sulfate 1.8 GM in Sodium Chloride 0.9% 100 ML IV SCH (09:00)
[2020-06-03] MEDS ORDERED: Meropenem 500 MG in Sodium Chloride 0.9% 50 ML IV ONE (09:00)
[2020-06-03] MEDS ORDERED: Ketamine 50 MG in Sodium Chloride 0.9% 49.5 ML IV SCH (09:00)
[2020-06-03] MEDS ORDERED: Lactated Ringers 1,000 ML ONE ×2 (09:08→10:46)
[2020-06-03] MEDS: Pantoprazole 40 MG Vial IV SCH (09:33)
--- NOTE | 2020-06-03 09:34 | CR ---
Abdomen 2V AP Flat Upright CLINICAL HISTORY: Follow-up SBO/ileus FINDINGS: There is some distended small bowel as well as some distended colon in the mid and left abdomen. This may be decreased slightly when compared to the 05/31/2020 exam. There is a Pimentel catheter in the bladder. Patient has had extensive abdominal surgery IMPRESSION: Small bowel in left colonic distention. There may be some minimal improvement when compared to prior study
--- NOTE | 2020-06-03 09:59 | CR ---
Abdomen 2V AP Flat Upright CLINICAL HISTORY: Ileus/SBO FINDINGS: There is persistent colonic and some small bowel distention diffusely. There is has been extensive intestinal surgery. There is minimal gas in the rectum. No free air is seen IMPRESSION: Persistent colonic and small bowel distention similar to prior study. There is no significant air in the rectum. Prone crosstable lateral view the rectum is consideration to exclude the rectosigmoid obstruction
[2020-06-03] MEDS: HYDROmorphone/Normal Saline 15 MG/30 ML PCA IV PRN (10:09)
--- NOTE | 2020-06-03 11:10 | CR ---
Abdomen 2V AP Flat Upright CLINICAL HISTORY: Follow-up ileus/SBO FINDINGS: No free air is seen. There is persistent small bowel and colonic distention. There is a paucity of gas in the rectosigmoid colon. Patient has had previous extensive abdominal surgery. IMPRESSION: Persistent small bowel and colonic distention similar to prior study Persistent possibly of some bowel gas in the rectosigmoid colon compared to the remainder of the colon. This may be due to distal ileus. Distal descending colon obstruction is not excluded.
[2020-06-03] MEDS ORDERED: fentaNYL 100 MCG/2 ML SDV ONE (11:14)
[2020-06-03] MEDS ORDERED: Scopolamine 1.5 MG Transdermal Patch ONE (11:20)
[2020-06-03] MEDS ORDERED: Albuterol/Ipratropium 3.0-0.5 MG/3 ML Neb Soln INH PRN (13:00)
[2020-06-03] MEDS ORDERED: Labetalol 20 MG/4 ML Syringe IVPUSH PRN (13:00)
[2020-06-03] MEDS ORDERED: hydrOXYzine HCL 100 MG/2 ML SDV IM PRN (13:00)
[2020-06-03] MEDS ORDERED: Calcium Gluconate 10% 1 GM/10 ML SDV IVPUSH PRN (13:00)
[2020-06-03] MEDS ORDERED: diphenhydrAMINE 50 MG/ML SDV IVPUSH PRN (13:00)
[2020-06-03] MEDS ORDERED: Dextrose 5%-Lactated Ringers 1,000 ML IV SCH ×2 (13:00→17:00)
[2020-06-03] MEDS ORDERED: Metoclopramide 10 MG/2 ML SDV IVPUSH PRN (13:00)
--- NOTE | 2020-06-03 13:49 | CR ---
CHEST: Portable 06/03/2020 at 11:43 AM CLINICAL HISTORY:Subclavian catheter placement COMPARISON:2016 FINDINGS: The heart size, pulmonary vascularity and hilar structures are normal. There has been placement of a left subclavian catheter. The tip is in the upper right atrium. No infiltrate effusion or pneumothorax is seen. IMPRESSION: No acute cardiopulmonary process. Right subclavian catheter placement described above
[2020-06-03] MEDS: Meropenem 500 MG in Sodium Chloride 0.9% 50 ML IV SCH ×2 (15:21→20:22)
[2020-06-03] MEDS: 1: AA 5%/Calcium/D15W/Lytes 1,000 ML with MVI, Adult with Vitamin K 10 ML, Zinc/Copper/M IV SCH ×3 (18:08)
[2020-06-03] MEDS: cloNIDine 0.1 MG Tab PO PRN (20:11)
[2020-06-03] MEDS: DULoxetine 30 MG Cap PO SCH (20:14)
[2020-06-03] MEDS: Mirtazapine 15 MG Tab PO SCH (20:15)
[2020-06-03] MEDS ORDERED: Pantoprazole 40 MG Vial IVPUSH SCH (21:00)
[2020-06-03] MEDS: Acetaminophen 500 MG Tab PO SCH (22:09)
[2020-06-04] MEDS: Meropenem 500 MG in Sodium Chloride 0.9% 50 ML IV SCH ×4 (03:57→20:28)
[2020-06-04] MEDS: 1: AA 5%/Calcium/D15W/Lytes 1,000 ML with MVI, Adult with Vitamin K 10 ML, Zinc/Copper/M IV SCH ×9 (04:14→22:55)
[2020-06-04] MEDS: HYDROmorphone/Normal Saline 15 MG/30 ML PCA IV PRN ×2 (04:20→22:54)
[2020-06-04] MEDS: Acetaminophen 500 MG Tab PO SCH ×3 (06:02→22:48)
[2020-06-04] MEDS ORDERED: Dextrose 5%-Lactated Ringers 1,000 ML IV SCH (07:30)
[2020-06-04] MEDS ORDERED: Central Total Parenteral Nutrition Bag SCH (07:30)
[2020-06-04] MEDS: Amphetamine/Dextroamphetamine Salts 10 MG Tab PO SCH ×2 (07:51→12:59)
[2020-06-04] MEDS: Celecoxib 200 MG Cap PO SCH ×2 (08:00→20:29)
[2020-06-04] MEDS: Lubiprostone 24 MCG Cap PO SCH ×2 (08:00→20:30)
[2020-06-04] MEDS: SCOPOLAMINE PATCH CHECK TOP SCH (08:03)
--- NOTE | 2020-06-04 08:07 | PN ---
DATE OF SERVICE: 06/04/2020 SUBJECTIVE: Jamee Vance is postoperative day #1. Pain has been controlled with the STUDY SPECIALIST. She has TPN running, tolerating well. Oral intake on clear liquid diet is 470. Urine output via Pimentel catheter is 1725. She has 2 KACY drains in and they put out 70 and 150 of a light red drainage. REVIEW OF SYSTEMS: Remainder of review of systems negative for any pertinent positives and negatives. OBJECTIVE: GENERAL: Jamee Vance is a pleasant 39-year-old female. She is resting comfortably in bed. VITAL SIGNS: TPR is 96.8, 107, 18, blood pressure 133/61. HEENT: Negative. NECK: Supple. HEART: Regular rate and rhythm. LUNGS: Clear. ABDOMEN: Dressings dry and intact. Abdominal binder is on. KACY drains as above. EXTREMITIES: Without peripheral edema. ASSESSMENT: 1. Insertion of left subclavian vein triple-lumen catheter. 2. Exploratory laparotomy with lysis of adhesions. a. Small-bowel resection. b. Enteroenterostomy to decompress distended small bowel. c. Drainage of inflammatory fluid collection right lower abdominal and pelvic area. d. Excision of fibrous implant, right pelvic sidewall. e. Placement of Interceed mesh. POSTOPERATIVE DIAGNOSES: 1. Limited peripheral vein access. 2. Adhesive small bowel obstruction with marked distention of proximal small bowel. 3. Inflammatory hemolysis fluid collected in right lower abdomen and pelvis. 4. Fibrous implants 11 cm right pelvic sidewall. 5. Date of procedure: 06/03/2020. Surgeon: Hill Sagastume MD. PLAN: 1. Continue same TPN rate and content. 2. Decrease D5 LR to TKO. 3. Albumin 50 g IV daily x3 days. 4. Check CBC, CMP, mag, phos in a.m. 5. K-Phos 45 millimoles IV today. 6. Discontinue Pimentel. 7. Discontinue telemetry. 8. May shower. 9. Bariatric step 1 diet with protein drinks. 10.We will evaluate p.r.n. or in a.m. Britney Hand PA-C /[id number]
[2020-06-04] MEDS ORDERED: Midazolam 1 MG/ML 2 ML SDV ONE (08:42)
[2020-06-04] MEDS ORDERED: fentaNYL 100 MCG/2 ML SDV ONE (08:42)
[2020-06-04] MEDS ORDERED: Propofol 200 MG/20 ML SDV ONE (08:42)
[2020-06-04] MEDS: Potassium Phos in 0.9 % NaCl 15 MMOL in Premix Bag 1 BAG IV SCH ×6 (09:38→17:04)
--- NOTE | 2020-06-04 10:16 | PN ---
DATE OF SERVICE: 06/03/2020 The patient has been afebrile with stable vital signs. Her abdominal x-ray shows increasing distention of the small bowel loops. There is still some air in the colon and rectum, but this is relatively minimal and at this point she appears to be failing nonoperative treatment. Our plan will be proceeding with exploratory laparotomy with small bowel resection and/or lysis of adhesions, and with her IV situation, we will place a central triple-lumen catheter. Labs show her white count is still little bit elevated at 16,000, it was 17,000 yesterday. Potassium is somewhat low at 3.4, and we will supplement that postoperatively as the external jugular line is somewhat tenuous. Potential risks of the procedure were reviewed including bleeding, infection, leaks from various GI tract closures, problems with recurrence of bowel obstruction, problems over time, as well as possible pneumohemothorax or vascular injury related to the central line insertion, and she wishes to proceed. We will plan on general anesthetic plus TAP block, intraoperative ketamine infusion, and intraoperative magnesium infusion. Hill Sagastume MD /[id number]
--- NOTE | 2020-06-04 10:23 | PN ---
DATE OF SERVICE: 06/02/2020 The patient has been afebrile with stable vital signs. The urine output has been just adequate since she has been taking in some liquids, passed a little bit of flatus, and perhaps had a very small bowel movement. There is some air in the rectum on the CT scan, but there is no predominant picture of a proximally distended small bowel situation, so I suspect we are likely dealing with a high-grade partial obstruction at this point. She is fairly comfortable. We will continue the present management for today and make her n.p.o. after midnight, check some x-rays in the morning. If things are not opening up by tomorrow, we will probably need to proceed with laparotomy at which time we will get a central line insertion, TPN in as well. Hill Sagastume MD /[id number]
[2020-06-04] MEDS ORDERED: Sodium Chloride 0.9% 1,000 ML IV SCH (18:15)
[2020-06-04] MEDS: Cyclobenzaprine 10 MG Tab PO PRN (20:28)
[2020-06-04] MEDS: Pantoprazole 40 MG Tab.CR PO SCH (20:30)
[2020-06-04] MEDS: Acetaminophen 500 MG Tab PO PRN (20:31)
[2020-06-04] MEDS: DULoxetine 30 MG Cap PO SCH (20:31)
[2020-06-04] MEDS: Mirtazapine 15 MG Tab PO SCH (20:31)
[2020-06-05] MEDS: Acetaminophen 500 MG Tab PO SCH ×3 (06:08→21:17)
[2020-06-05] MEDS ORDERED: Central Total Parenteral Nutrition Bag SCH (07:30)
[2020-06-05] MEDS ORDERED: Cyanocobalamin (Vitamin B12) 1,000 MCG/ML SDV IM ONE (09:00)
[2020-06-05] MEDS ORDERED: Furosemide 20 MG/2 ML VIAL IVPUSH ONE (09:00)
[2020-06-05] MEDS: Amphetamine/Dextroamphetamine Salts 10 MG Tab PO SCH ×2 (09:00→13:51)
[2020-06-05] MEDS: Lubiprostone 24 MCG Cap PO SCH ×2 (09:01→21:17)
[2020-06-05] MEDS: Celecoxib 200 MG Cap PO SCH ×2 (09:02→21:17)
[2020-06-05] MEDS: SCOPOLAMINE PATCH CHECK TOP SCH (09:03)
[2020-06-05] MEDS: 1: AA 5%/Calcium/D15W/Lytes 1,000 ML with MVI, Adult with Vitamin K 10 ML, Zinc/Copper/M IV SCH ×6 (09:04→20:01)
--- NOTE | 2020-06-05 09:47 | PN ---
DATE OF SERVICE: 06/05/2020 SUBJECTIVE: Jamee is postoperative day #2. Pain is controlled with the SOUND CUTTER. She has been up, ambulating. Vital signs stable, afebrile. Oral intake 1600. Urine output; she has been going independently. KACY drains 1 and 2 have put out 20 and 80 of a pink clear drainage. REVIEW OF SYSTEMS: Remainder of review of systems negative for any pertinent positives and negatives. OBJECTIVE: GENERAL: Jamee Vance is a pleasant 39-year-old female, quite sleepy, but arouses easily. VITAL SIGNS: TPR is 97.1, 97, 18, blood pressure 116/71. HEENT: Negative. NECK: Supple. HEART: Regular rate and rhythm. LUNGS: Clear. ABDOMEN: Aquacel dressings on. Abdominal binder is on. EXTREMITIES: Reveal peripheral edema in her thighs and lower legs. PSYCHIATRIC: Mood and affect appropriate. ASSESSMENT: 1. Insertion of left subclavian vein triple-lumen catheter. 2. Exploratory laparotomy with lysis of adhesions. a. Small-bowel resection. b. Enteroenterostomy to decompress distended small bowel. c. Drainage of inflammatory fluid collection, right lower abdominal and pelvic area. d. Excision of fibrous implant, right pelvic sidewall. e. Placement of Interceed mesh. POSTOPERATIVE DIAGNOSES: 1. Limited peripheral vein access. 2. Adhesive small bowel obstruction with marked distention of proximal small bowel. 3. Inflammatory hemolysis fluid collection in right lower abdomen and pelvis. 4. Fibrous implants 11 cm right pelvic sidewall. 5. Date of procedure: 06/03/2020. Surgeon: Hill Sagastume MD. PLAN: 1. Scheduled an upper GI x-ray with gastric bypass protocol on 06/06/2020 at 0400. The patient does not have to be n.p.o. 2. Discontinue SOUND CUTTER. 3. Discontinue continuous pulse ox. 4. Dilaudid 2 to 4 mg every 4 hours p.r.n. pain. 5. Continue same TPN rate and content. 6. Lasix 20 mg IV 1 time now. 7. Check CBC, CMP, mag, phos in a.m. 8. Continue use of incentive spirometer and ambulation. 9. We will evaluate p.r.n. or in a.m. Britney Hand PA-C /[id number]
[2020-06-05] MEDS: HYDROmorphone 2 MG Tab PO PRN ×3 (11:55→19:59)
[2020-06-05] MEDS: Nicotine 14 MG/24 Hr Patch TRDERM SCH (16:14)
[2020-06-05] MEDS: Acetaminophen 500 MG Tab PO PRN (19:59)
[2020-06-05] MEDS: Pantoprazole 40 MG Tab.CR PO SCH (21:17)
[2020-06-05] MEDS: Mirtazapine 15 MG Tab PO SCH (21:17)
[2020-06-05] MEDS: DULoxetine 30 MG Cap PO SCH (21:17)
[2020-06-06] MEDS: HYDROmorphone 2 MG Tab PO PRN ×6 (00:08→22:19)
[2020-06-06] MEDS: Acetaminophen 500 MG Tab PO SCH ×4 (05:27→21:49)
[2020-06-06] MEDS ORDERED: Iopamidol 612 MG/ML 50 ML SDV PO STA (05:29)
[2020-06-06] MEDS ORDERED: Central Total Parenteral Nutrition Bag SCH (07:30)
[2020-06-06] MEDS ORDERED: Furosemide 20 MG/2 ML VIAL IVPUSH ONE (08:30)
--- NOTE | 2020-06-06 09:14 | CR ---
UGI Limited HISTORY: Recent abdominal surgery surgery FINDINGS: Patient swallowed water-soluble contrast. Upright views of the abdomen show no evidence of extravasation or obstruction. Some small bowel and colon distention persists. IMPRESSION: Status post recent surgery with previous bariatric surgery. No extravasation or obstruction seen
[2020-06-06] MEDS: 1: AA 5%/Calcium/D15W/Lytes 1,000 ML with MVI, Adult with Vitamin K 10 ML, Zinc/Copper/M IV SCH ×6 (09:57→17:38)
[2020-06-06] MEDS: Celecoxib 200 MG Cap PO SCH ×2 (09:57→21:44)
[2020-06-06] MEDS: Bisacodyl 5 MG Tab PO SCH ×2 (09:58→21:44)
[2020-06-06] MEDS: Lubiprostone 24 MCG Cap PO SCH ×2 (09:58→21:44)
[2020-06-06] MEDS: Amphetamine/Dextroamphetamine Salts 10 MG Tab PO SCH ×2 (10:02→13:11)
--- NOTE | 2020-06-06 10:06 | PN ---
DATE OF SERVICE: 06/06/2020 SUBJECTIVE: Jamee reports her pain is controlled. She is having very small liquid bowel movements. Oral intake 920. KACY drains put out 10 and 50 of a light pink drainage. Remains to have fluid retention in her buttocks and her legs. She did state that the Lasix did help. REVIEW OF SYSTEMS: Remainder of review of systems negative for any pertinent positives and negatives. OBJECTIVE: GENERAL: Jamee Vance is a pleasant 39-year-old female. Alert, orientated. VITAL SIGNS: TPR 95.4, 92, 18, blood pressure 125/72. HEENT: Negative. NECK: Supple. HEART: Regular rate and rhythm. LUNGS: Clear. ABDOMEN: Aquacel dressing is on. KACY drains intact as above. Abdominal binder is on. EXTREMITIES: Remain to have peripheral edema, not as pronounced as yesterday. ASSESSMENT: 1. Insertion of left subclavian vein triple-lumen catheter. 2. Exploratory laparotomy with lysis of adhesions. a. Small bowel resection. b. Enteroenterostomy to decompress distended small bowel. c. Drainage of inflammatory fluid collection, right lower abdomen and pelvic area. d. Excision of fibrous implant, right pelvic wall. e. Placement of Interceed mesh. POSTOPERATIVE DIAGNOSES: 1. Limited peripheral vein access. 2. Adhesive small bowel obstruction with marked distention of proximal small bowel. 3. Inflammatory hemolysis, fluid collection in right lower abdomen and pelvis. 4. Fibrous implants 11 cm right pelvic wall. 5. Date of procedure: 06/03/2020. Surgeon: Hill Sagastume MD. PLAN: 1. Continue same TPN rate and content. 2. Discontinue both KACY drains. 3. Dulcolax tablets 10 mg b.i.d. orally. 4. Replace Aquacel dressing. 5. Continue albumin 50 g. 6. Check CBC, CMP, mag, phos in a.m. 7. Lasix 20 mg IV 1 time today. 8. Reinforce order to have SCDs on, which will help with peripheral edema. Britney Hand PA-C /[id number]
[2020-06-06] MEDS: Ondansetron 4 MG/2 ML SDV IVPUSH PRN ×2 (10:54→18:16)
[2020-06-06] MEDS: Nicotine 14 MG/24 Hr Patch TRDERM SCH (11:00)
[2020-06-06] MEDS: cloNIDine 0.1 MG Tab PO PRN (19:25)
[2020-06-06] MEDS: Pantoprazole 40 MG Tab.CR PO SCH (21:44)
[2020-06-06] MEDS: DULoxetine 30 MG Cap PO SCH (21:44)
[2020-06-06] MEDS: Mirtazapine 15 MG Tab PO SCH (21:45)
[2020-06-06] MEDS: Cyclobenzaprine 10 MG Tab PO PRN (21:49)
[2020-06-07] MEDS: HYDROmorphone 2 MG Tab PO PRN ×2 (02:12→06:40)
[2020-06-07] MEDS: cloNIDine 0.1 MG Tab PO PRN (02:17)
[2020-06-07] MEDS: 1: AA 5%/Calcium/D15W/Lytes 1,000 ML with MVI, Adult with Vitamin K 10 ML, Zinc/Copper/M IV SCH ×3 (03:51)
[2020-06-07] MEDS: Acetaminophen 500 MG Tab PO SCH (06:40)
[2020-06-07] MEDS ORDERED: Central Total Parenteral Nutrition Bag SCH (07:15)
[2020-06-07] MEDS: Amphetamine/Dextroamphetamine Salts 10 MG Tab PO SCH (08:00)
[2020-06-07] MEDS: Lubiprostone 24 MCG Cap PO SCH (08:01)
[2020-06-07] MEDS: Celecoxib 200 MG Cap PO SCH (08:01)
[2020-06-07] MEDS: Bisacodyl 5 MG Tab PO SCH (08:02)
--- NOTE | 2020-06-07 09:10 | CR ---
Abdomen 1V Upright CLINICAL HISTORY: Follow-up contrast study FINDINGS: No free air is seen. There is decrease in small bowel dilatation. Previously ingested contrast has passed and/or resorbed. There is some persistent gaseous distention of colon similar to prior study. IMPRESSION: Decrease in small bowel gas Oral contrast is significantly diminished Gaseous distention of the colon similar to prior study
[2020-06-07 09:54] VITALS: BP 120/60; PULSE 89
[2020-06-07] MEDS: Nicotine 14 MG/24 Hr Patch TRDERM SCH (09:57)
--- NOTE | 2020-06-08 07:07 | DISCH ---
ADMISSION DIAGNOSES: 1. Ileus following gastrointestinal surgery, status post Silvestre-en-Y gastric bypass surgery. 2. Unspecified surgical malabsorption. 3. B12 deficiency. 4. Vitamin D deficiency. 5. Chronic constipation. 6. Attention deficit hyperactivity disorder. 7. History of addiction. 8. Anxiety and depression. 9. Post-traumatic stress disorder. DISCHARGE DIAGNOSES: 1. Insertion of left subclavian vein triple-lumen catheter. 2. Exploratory laparotomy with lysis of adhesions. a. Small-bowel resection. b. Enteroenterostomy to decompress distended small bowel. c. Drainage of inflammatory fluid collection right lower abdomen and pelvic area. d. Excision of fibrous implant, right pelvic wall. e. Placement of Interceed mesh. POSTOPERATIVE DIAGNOSES: 1. Limited peripheral vein access. 2. Adhesive small bowel obstruction with marked distention of proximal small bowel. 3. Inflammatory hemolysis, fluid collection in right lower abdomen and pelvis. 4. Fibrous implants 11 cm, right pelvic wall. 5. Date of procedure: 06/03/2020. Surgeon: Hill Sagastume MD. 6. TPN nutrition during hospitalization, but discontinued prior to discharge. HISTORY: Jamee Vance was admitted on 05/31/2020 for abdominal pain, inability to urinate, and have bowel movements. She had had an exploratory laparotomy with lysis of adhesion and reduction of small bowel volvulus, small bowel resection, enterotomy for tube decompression of small bowel, and placement of Interceed mesh on 05/21/2020. She was doing well until she presented with a 2-day history of the above symptoms. Jamee was admitted to the hospital, started on IV fluids. CT was obtained suggestive of slow transit with some element of ileus versus partial small bowel obstruction. She continued with IV fluids and pain management. On 06/02, vital signs were stable. She was started on some liquids. She passed some flatus and had a very small bowel movement. On 06/03, abdominal x-ray showed increasing distention of the small bowel loops and she was scheduled for surgery later that day. On 06/04/2020, postop day #1, she had no operative complications. Pain was well controlled. TPN was initiated and continued, and she was given albumin IV x3 days and started on a step 1 gastric bypass diet. On 06/05/2020, her [employer] was discontinued, started on oral Dilaudid, and was given IV for fluid retention. On 06/06/2020, her upper GI was done and did show some slow motility. TPN was discontinued and started on Dulcolax tablets for bowel movement. She did have 4 bowel movements. Pain was controlled with oral pain medication. She was educated in step 1 protein drinks, bariatric diet, and able to be discharged to home on 06/07/2020 without any complications. PHYSICAL EXAMINATION: GENERAL: Jamee Vance is a 39-year-old female. VITAL SIGNS: Height 5 feet 6.14 inches, weight is 138 pounds. TPR 96.8, 100, 16, blood pressure 124/57. HEENT: Negative. NECK: Supple. HEART: Regular rate and rhythm. Triple lumen is in the left subclavian area. This will be left in. ABDOMEN: Aquacel dressings on. Abdominal binder is on. EXTREMITIES: Remain to have trace peripheral edema. DISPOSITION: Discharged to home. CONDITION: Stable and improving. FOLLOWUP: Appointment with Hill Sagastume MD, at [facility] on 06/12/2020 at 10 a.m. HOME MEDICATIONS: 1. Celebrex 200 mg p.o. b.i.d. #28. 2. Dilaudid 2 mg every 4 hours p.r.n. pain #42. 3. Zofran ODT 4 mg sublingual every 6 hours p.r.n. nausea, #30. 4. Tylenol 1000 mg p.o. daily. 5. Home medications to continue are;. a. MiraLax 34 g p.o. b.i.d. p.r.n. b. Clonidine 0.1 mg p.o. q.i.d. p.r.n. anxiety. c. Cymbalta 120 mg p.o. at bedtime. d. Flexeril 10 mg p.o. t.i.d. p.r.n. muscle spasms. e. Senna Plus 2 tablets p.o. daily. f. Adderall 20 mg p.o. b.i.d. g. Protonix 40 mg p.o. daily. h. Mirtazapine 15 mg p.o. at bedtime. i. Amitiza 24 mcg p.o. b.i.d. DIET: Step 1 gastric bypass diet with protein drinks only. Drink 8 to 10 glasses of water a day. ACTIVITY: No lifting greater than 10 pounds for 6 weeks. OTHER ACTIVITY: Walk 6 times daily inside your home. Driving: Do not drive for 1 week. Shower: May shower. DISCHARGE INSTRUCTIONS: Keep operative site clean and dry. Take off Aquacel dressing on 06/09/2020. Wear abdominal binder for 6 weeks and then as tolerated. Notify provider if any fever, increased pain, swelling, redness, drainage, nausea, vomiting. SPECIAL INSTRUCTION: Use incentive spirometer 10 times every hour while awake for 1 week. /[id number]
--- NOTE | 2020-06-10 10:49 | OR ---
DATE OF PROCEDURE: 06/03/2020 SURGEON: Hill Sagastume MD PREOPERATIVE DIAGNOSES: 1. Limited peripheral venous access. 2. Partial small bowel obstruction. POSTOPERATIVE DIAGNOSES: 1. Limited peripheral venous access. 2. Adhesive small bowel obstruction with marked distention of proximal small bowel. 3. Inflammatory hemorrhagic fluid collection of right lower abdomen and pelvis. 4. Broad area of fibrinous implant, right pelvic sidewall (11 cm). OPERATIVE PROCEDURE: 1. Insertion of left subclavian vein triple-lumen catheter (36953). 2. Exploratory laparotomy with lysis of adhesions: a. Small bowel resection (64738). b. Enterotomy for decompression of proximal distended small bowel (66912). c. Drainage of hemorrhagic inflammatory fluid collection of right lower abdomen and pelvis (81571). d. Excision of fibrinous peritoneal implant of right pelvic sidewall (45784). e. Placement of Interceed mesh to limit recurrent adhesion formation between pelvic and abdominal wall and underlying viscera (16625). ANESTHESIA: General. HOME ORGANIZER: Britney Hand PA-C and MARIAN Norman. INDICATIONS FOR PROCEDURE: This is a 39-year-old presenting with recurrent partial small bowel obstruction. At this point, she is having difficulty maintaining adequate IV access and also meets indications for some early postoperative IV hyperalimentation for assisting in her nutritional management. Plan is to proceed with insertion of central line along with exploratory laparotomy, lysis of adhesions, and small bowel resection as indicated, and other procedures based on the intraoperative findings. Potential risks including bleeding, infection, leaks from various GI tract closures, problems with bowel obstruction recurring over time, problems with central line insertion such as pneumohemothorax or infection were gone over, and the patient wishes to proceed. DETAILS OF PROCEDURE: The patient was taken to the operating room, and after general endotracheal anesthesia was induced, the upper chest and neck areas were prepped and draped. The left subclavian vein was then cannulated. A guidewire passed. Over the guidewire, a triple-lumen catheter was positioned. Good in and outflow was noted and the ports were flushed with heparinized saline. The catheter was sutured to skin with some 3-0 silk stitch and dressing applied. Subsequent chest x-ray showed good catheter position without any complication. Pimentel catheter was inserted and the abdomen prepped and draped. A midline incision was then reused and carried down through the skin and subcutaneous tissue. This was extended somewhat more inferior from the previous incision, and upon entering the peritoneal cavity, markedly distended small bowel loops were encountered as expected. On blunt dissection, the patient was noted to have a broad area of hemorrhagic inflammatory fluid within the right lower abdomen and pelvis. This was associated with obvious focal peritonitis. Cultures were obtained and these ultimately did not show any infection. Along the pelvic sidewall, there was broad area of around 11 cm of fibrinous implant. This was bluntly dissected away from the pelvic wall and sent for histologic evaluation as well. The abdomen at this point was fairly loosely adherent to the abdominopelvic wall as well as between the small bowel loops. This was taken down. An area of tight angulation was observed in the right lower pelvis. As that bowel was mobilized upward, there was obviously a point of obstruction, which was more or less an acute early adhesion. At this point appeared to be somewhat fixed due to local edema in the area. A decision was made to resect that area. The proximal and distal ends of the area of involvement were then divided with a MIGUELITO stapler as was the underlying mesentery, and the segment of small bowel was delivered from the field. To facilitate adequate closure as well as decreasing risk of the anastomotic leak, the proximally distended small bowel was then decompressed with an enterotomy and placed through the proximally divided bowel, and a Cooper sump tube placed, and large amount of air and fluid was then removed, thus decompressing the proximal small bowel. The enteroenterostomy between the 2 ends of small bowel was accomplished with 2 internal firings of the Endo-MIGUELITO stapler, one at 60 mm and second at 30 mm. Common opening was then closed transversely with same stapler, and the angles anastomosed, and the mesenteric defect approximated with some 3-0 Vicryl stitch. At this point, no further significant problems were noted and the abdomen was irrigated with antibiotic-containing saline solution. Interceed mesh was placed underneath the incision and from there down toward the pelvic wall to displace those surfaces from the underlying viscera and limit recurrent adhesion formation. Bilateral transversus abdominis plane blocks were then placed, and the midline fascia was approximated with a #2 Vicryl stitch, subcutaneous tissue with some 3-0 Vicryl stitch, and the skin with diana. Dressing was applied. The patient was taken to the recovery room in satisfactory condition. There were no evident complications. Physician tiler's assistant, Britney Hand PA-C, played an essential role in assisting in this case, helping to position the patient, retract structures as needed, as well as suturing and cutting sutures when indicated. Her presence improved patient safety and decreased the operative time. Hill Sagastume MD /[id number]
== END 2020-06-07 10:47 | disposition home or self-care (01) | DRG 330 ==
LOC: JP.ICU 11:51 → JP.MS 06-03 16:01
PROVIDERS: ADMIT Surgery; ATTEND Surgery
PROC: 0DN80ZZ Release Small Intestine, Open Approach (ICD-10-PCS; principal; 2020-06-03)
PROC: 0WBH0ZZ Excision of Retroperitoneum, Open Approach (ICD-10-PCS; principal; 2020-06-03)
PROC: 0D988ZZ Drainage of Small Intestine, Via Natural or Artificial Opening Endoscopic (ICD-10-PCS; principal; 2020-06-03)
PROC: 0DT80ZZ Resection of Small Intestine, Open Approach (ICD-10-PCS; principal; 2020-06-03)
PROC: 02HV33Z Insertion of Infusion Device into Superior Vena Cava, Percutaneous Approach (ICD-10-PCS; 2020-06-03)
DX: K91.31 Postprocedural partial intestinal obstruction (principal); K90.9 Intestinal malabsorption, unspecified; F41.9 Anxiety disorder, unspecified; F32.9 Major depressive disorder, single episode, unspecified; F43.12 Post-traumatic stress disorder, chronic; F90.9 Attention-deficit hyperactivity disorder, unspecified type; E55.9 Vitamin D deficiency, unspecified; E53.8 Deficiency of other specified B group vitamins; Y83.8 Other surgical procedures as the cause of abnormal reaction of the patient, or of later complication, without mention of misadventure at the time of the procedure; Y92.89 Other specified places as the place of occurrence of the external cause; Z20.822 Contact with and (suspected) exposure to COVID-19; D64.9 Anemia, unspecified; H54.7 Unspecified visual loss; K21.9 Gastro-esophageal reflux disease without esophagitis; Z87.440 Personal history of urinary (tract) infections; Z90.49 Acquired absence of other specified parts of digestive tract; Z98.890 Other specified postprocedural states; Z90.89 Acquired absence of other organs; Z98.84 Bariatric surgery status; Z90.710 Acquired absence of both cervix and uterus; E86.0 Dehydration; R33.9 Retention of urine, unspecified
CPT/HCPCS: 0241U; 36415; 51702; 71045; 71045-26; 74018; 74018-26; 74019; 74019-26; 74177; 74240; 74240-26; 80053; 81001; 83735; 84100; 85025; 85027; 87070; 87075; 87205; 88304; 88305; 88307; 94762; A9270-GY; C9113; J0171; J0330; J0744; J1100; J1170; J1200; J1642; J1940; J2020; J2185; J2250; J2405; J2704; J2710; J2795; J3010; J3411; J3420; J3475; J3490; J7030; J7050; J7120; J7121; P9047; Q9967